=== PATIENT | female | born 1980 | race Hispanic/Latino ===

== ENCOUNTER 2020-04-13 14:48 | Observation (INO) | payer BC ==
[~2020-04-13] VITALS: Ht 162.6 cm; Wt 132.9 kg
--- OUTSIDE RECORDS SUMMARY | 2020-04-13 15:03 | XMS REPORT | Clinical Summary ---
Author Author [employer] [facility] Organization [employer] [facility] Address Unknown Phone Unavailable Care Team Providers Care Community Service Manager Name Role Phone Tre Viveros DO PCP Allergies Comments Active Allergy Reactions Severity Noted Date Meperidine Anaphylaxis High 05/22/2019 Medications End Date Status Medication Sig Dispensed Refills Start Date Active HUMIRA 40 mg/0.8 mL 0 injection 9 Active zolpidem CR (AMBIEN CR) TAKE 1 TABLET 4 12.5 MG CR tablet BY MOUTH 9 EVERY DAY AT BEDTIME NEEDED Active sulindac (CLINORIL) 200 Take 200 mg 3 MG tablet by mouth 2 9 (two) times a day. Active sulfaSALAzine sulfasalazine 0 (AZULFIDINE) 500 mg 500 mg tablet tablet TAKE 1 TABLET EVERY DAY Active metoprolol succinate XL Take 50 mg by 2 (TOPROL-XL) 50 mg 24 hr mouth daily. 9 tablet Active phenazopyridine phenazopyridi 0 (PYRIDIUM) 100 MG tablet ne 100 mg tablet TAKE 1 TABLET BY MOUTH THREE TIMES A DAY FOR 2 DAYS Active phentermine (ADIPEX-P) Take 37.5 mg 2 03/28/ 01 37.5 mg tablet by mouth 9 daily. 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 Active ibuprofen-famotidine Take 800 mg 90 tablet 12 09/04 (DUEXIS) 800-26.6 mg by mouth 3 9 tabletIndications: (three) times Contusion of lesser toe a day. of right foot without damage to nail, initial encounter, Right foot pain 09/04/2019 Discontinued (Reorder) ibuprofen-famotidine Take 800 mg 90 tablet 3 05/22 (DUEXIS) 800-26.6 mg by mouth 3 9 tabletIndications: (three) times Contusion of lesser toe a day. 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 Status Hospital, Clinic, or Ordered Dose Route Frequency Start End Date Other Facility Date Administered Medication Ended keTOROlac (TORadol) 60 mg IM once 07/08/20 injection 60 19 9 mgIndications: Acute bilateral low back pain without sciatica Active Problems No known active problems Encounters Care Team Description Date Type Specialty Pepe Martin MD 04/05/2020 Orders Only Sports Medicine Pepe Martin MD Acute shoulder bursitis, left (Primary D x) 04/01/2020 Office Visit Sports Medicine 04/01/2020 Travel 03/08/2020 Travel Pepe Martin MD Retroperitoneal lymphadenopathy 09/28/2019 Hospital Radiology Encounter Michelle Murry MA Retroperitoneal lymphadenopathy (Primary Dx) 09/24/2019 Orders Only Sports Medicine Michelle Murry MA 09/22/2019 Orders Only Sports Medicine Michelle Murry MA Retroperitoneal lymphadenopathy (Primary Dx) 09/22/2019 Orders Only Sports Medicine Pepe Martin MD Retroperitoneal lymphadenopathy (Primary Dx) 09/14/2019 Orders Only Sports Medicine Pepe Martin MD Solitary pulmonary nodule 09/12/2019 Hospital Radiology Encounter Michelle Murry MA Contusion of lesser toe of right foot wi thout damage to nail, initial encounter; Right foot pain 09/04/2019 Refill Sports Medicine Michelle Murry MA Solitary pulmonary nodule (Primary Dx) 07/21/2019 Orders Only Sports Medicine Michelle Murry MA Solitary pulmonary nodule (Primary Dx) 07/20/2019 Orders Only Sports Medicine Pepe Martin MD Acute bilateral low back pain without sc iatica (Primary Dx); Solitary pulmonary nodule 07/08/2019 Office Visit Sports Medicine Pepe Martin MD Primary osteoarthritis of both knees (Pr imary Dx) 07/03/2019 Office Visit Sports Medicine Pepe Martin MD Primary osteoarthritis of both knees (Pr imary Dx) 06/26/2019 Office Visit Sports Medicine Pepe Martin MD Primary osteoarthritis of both knees (Pr imary Dx) 06/19/2019 Office Visit Sports Medicine Michelle Murry MA Rheumatoid arthritis involving both knee s with positive rheumatoid factor (HCC); Primary osteoarthritis of both knees; Positive Guilherme sign (meniscus tear) of left knee, initial encounter 06/15/2019 Refill Sports Medicine Michelle Murry MA Rheumatoid arthritis involving both knee s with positive rheumatoid factor (HCC) (Primary Dx); Primary osteoarthritis of both knees; Positive Guilherme sign (meniscus tear) of left knee, initial encounter 06/04/2019 Refill Sports Medicine Pepe Martin MD Rheumatoid arthritis involving both knee s with positive rheumatoid factor (HCC) (Primary Dx); Chronic pain of both knees; Positive Guilherme sign (meniscus tear) of left knee, initial encounter; Primary osteoarthritis of both knees 05/26/2019 Office Visit Sports Medicine Pepe Martin MD Contusion of lesser toe of right foot wi thout damage to nail, initial encounter (Primary Dx); Right foot pain 05/22/2019 Office Visit Sports Medicine after 04/13/2019 Family History Medical History Relation Name Comments No Known Problems Father No Known Problems Mother Relation Name Status Comments Father Mother Alive Social History Date Tobacco Use Types Packs/Day Years Used Quit: 04/30/2012 Former Smoker Cigarettes 1 10 Smokeless Tobacco: Never Used Drinks/Week oz/Week Comments Alcohol Use Not Currently Sex Assigned at Date Recorded Female 05/13/2019 2:47 PM CDT Industry Job Start Date Occupation Not on file Not on file Not on file Travel End Travel History Travel Start No recent travel history available. Date Recorded COVID-19 Exposure Response 04/01/2020 10:04 AM CDT In the last month, have you been in contact with No / Unsure someone who was confirmed or suspected to have Coronavirus / COVID-19? Last Filed Vital Signs Not on file Plan of Treatment Health Maintenance Due Date Last Done Comments DIABETIC RETINAL EYE EXAM 1978 DIABETIC FOOT EXAM 1988 URINE MICROALBUMIN 1988 CERVICAL CANCER SCREENING 1999 INFLUENZA VACCINE 06/11/2020 09/14/2019 Procedures Comments Procedure Name Priority Date/Time Associated Diag nosis XR SHOULDER 2+ VW LEFT Routine 04/01/2020 Shoulde r injury, left, 10:29 AM CDT initial encounter CT ABDOMEN PELVIS W Routine 09/28/2019 Retroperit gaytan CONTRAST 7:09 PM [employer] lymphadenopathy ESTIMATED GFR Routine 09/28/2019 6:10 PM [employer] CREATININE LEVEL Routine 09/28/2019 6:[address] CHEST WO CONTRAST Routine 09/12/2019 Solitary pulmonary nodule 8:16 AM CDT XR LUMBAR SPINE COMPLETE Routine 07/08/2019 Acute bilateral low back 4+ VW 10:39 AM CDT pain without sciati ca MRI KNEE WO CONTRAST LEFT Routine 06/04/2019 [employer] fortino pain of both 2:57 PM CDT knees Positive Guilherme sign (meniscus tear) of left knee, initial encounter XR KNEE 3 VW BILATERAL Routine 05/26/2019 Chronic pain of both 1:56 PM CDT knees XR FOOT 3+ VW RIGHT Routine 05/22/2019 Right foot pain 1:33 PM CDT after 04/13/2019 Results * XR Shoulder 2+ Vw Left (04/01/2020 10:29 AM CDT) Specimen Narrative Performed At [facility] 3 views of the left shoulder were obtai tr. No overt evidence of acute osseous abnormality is identified at th is time. Minimal glenohumeral joint space narrowing is identified. Performing Organization Address City/State/Zipcode Ph one Number [facility] [address] [place] [address] * CT Abdomen Pelvis W Contrast (09/28/2019 7:09 PM [employer]) Specimen Narrative Performed At EXAMINATION: CT ABDOMEN PELVIS W CONTRAST [facility] CLINICAL HISTORY: R59.0 Localized enl arged lymph nodes, retroperitoneal lymph nodes COMPARISON: 09/12/2019 TECHNIQUE: CT of the abdomen and pelv is with intravenous contrast. CT imaging was performed with iterative reconstruction techniques and/or automated exposure control to reduce ra diation dose. FINDINGS: LOWER THORAX: Normal. HEPATOBILIARY: Cholecystectomy. No fo marisabel hepatic lesion. No biliary dilation. SPLEEN: No splenomegaly. PANCREAS: No focal masses or ductal d ilation. ADRENALS: No adrenal nodules. KIDNEYS: No hydronephrosis, stones or solid masses. GI TRACT: Visualized portions of the bowel demonstrate no distention or wall thickening. PERITONEUM/RETROPERITONEUM: There is an enlarged 3.0 x 4.1 x 2.0 cm gastrohepatic lymph node, stable. It is heterogeneous suggesting some areas of necrosis. There is a second 9 mm node j ust inferior to the large node. There is an upper limits of normal port a hepatic/peripancreatic node measuring 1 cm. No additional abdominal adenopathy. No ascites. No free air. VASCULATURE: Abdominal aorta is nonaneu rysmal. PELVIC ORGANS/BLADDER: Bilateral tuba l ligation clips. 2.5 cm dominant follicle left ovary. There is no pelvic fluid or adenopathy. BONES AND SOFT TISSUES: No suspicious osseous lesions. IMPRESSION: 1.4.1 cm gastrohepatic lymph node with an immediately adjacent 9 mm lymph node. While nonspecific, they are most concer kay for malignancy such as lymphoma or metastatic disease. Consider endoscopic ultrasound with tissue sampling. PET CT could also be performed. 2.Additional findings as above. [facility]-[id number] Procedure Note Hm Interface, Radiology Results Incoming - 09/28/2019 7:32 PM [employer] EXAMINATION: CT ABDOMEN PELVIS W CONTRAST CLINICAL HISTORY: R59.0 Localized enlarged lymph nodes, retroperitoneal lymph nodes COMPARISON: 09/12/2019 TECHNIQUE: CT of the abdomen and pelvis with intravenous contrast. CT imaging was performed with iterative reconstruction techniques and/or automated exposure control to reduce radiation dose. FINDINGS: LOWER THORAX: Normal. HEPATOBILIARY: Cholecystectomy. No focal hepatic lesion. No biliary dilation. SPLEEN: No splenomegaly. PANCREAS: No focal masses or ductal dilation. ADRENALS: No adrenal nodules. KIDNEYS: No hydronephrosis, stones or solid masses. GI TRACT: Visualized portions of the bowel demonstrate no distention or wall thickening. PERITONEUM/RETROPERITONEUM: There is an enlarged 3.0 x 4.1 x 2.0 cm gastrohepatic lymph node, stable. It is heterogeneous suggesting some areas of necrosis. There is a second 9 mm node just inferior to the large node. There is an upper limits of normal [place] hepatic/peripancreatic node measuring 1 cm. No additional abdominal adenopathy. No ascites. No free air. VASCULATURE: Abdominal aorta is nonaneurysmal. PELVIC ORGANS/BLADDER: Bilateral tubal ligation clips. 2.5 cm dominant follicle left ovary. There is no pelvic fluid or adenopathy. BONES AND SOFT TISSUES: No suspicious osseous lesions. IMPRESSION: 1.4.1 cm gastrohepatic lymph node with a n immediately adjacent 9 mm lymph node. While nonspecific, they are most concerning for malignancy such as lymphoma or metastatic disease. Consider endoscopic ultrasound with tissue sampling. PET CT could also be performed. 2.Additional findings as above. [facility]-[id number] Performing Organization Address City/[facility] Ph one Number [facility] [address] [place] [address] * Estimated GFR (09/28/2019 6:10 PM [employer]) Estimated GFR >=90 mL/min/1.73 m2 TATUMS Comment: MANDAEISM SUGAR [facility] Interpretation G1 >=90 Normal or high G2 60-89 Mildly decreased G3a 45-59 Mildly to moderately decreased G3b 30-44 Moderately to severely decreased G4 15-29 Severely decreased G5 <15 Kidney failure The eGFR was calculated using the Chronic Kidney Disease Epidemiology Collaboration (CKD-EPI) equation. Interpretation is based on recommendations of the National Kidney Foundation-Kidney Disease Outcomes Quality Initiative (NKF-KDOQI) published in 2014. Specimen Plasma specimen Performing Organization Address City/[facility]/Zipcode Ph one Number [facility] [place] [address] [place], [place] [address] [facility] [address] * Creatinine level (09/28/2019 6:10 PM [employer]) Creatinine 0.50 0.50 - 0.90 mg/dL [facility] Specimen Plasma specimen Performing Organization Address [facility] Ph one Number [facility] [place] [address] [place], [place] [address] [facility]Y [facility]OM[facility] [address] * CT Chest Wo Contrast (09/12/2019 8:16 AM CDT) Specimen Narrative Performed At EXAMINATION: [facility] CT CHEST WO CONTRAST CLINICAL HISTORY: R91.1 Solitary pulmonary nodule, Pulmon abbie nodule along the right lower lobe concern for malignancy versus calcified lymph node TECHNIQUE: Multiple axial images of the chest were obtained without intravenous contrast. The lack of intravenous contrast reduce s the sensitivity of detecting solid organ disease and evaluating vasculatur e. Sagittal and coronal computerized reformatted images were also obtained. CT imaging was performed with iterative reconstruction techniques and/or automated exposure control to reduce ra diation dose. COMPARISON: None. FINDINGS: 1.No pulmonary infiltrates or nodules a re seen. 2.Interstitial markings are not increas ed. There are no areas of groundglass opacification. 3.No pleural or pericardial effusions. 4.Thoracic aorta is of normal caliber. No enlarged hilar or mediastinal lymph nodes. 5.Limited scans through the upper abdom en demonstrate enlarged lymph nodes around the celiac axis. Complete evalua tion with CT scan of the abdomen would be suggested if this has not been previous ly performed. IMPRESSION: No pulmonary abnormality. Enlarged uppe r retroperitoneal lymph nodes; further evaluation with CT scan of the abdomen suggested if this has not been previously performed. [facility]-[id number] Procedure Note Interface, Radiology Results Incoming - 09/12/2019 8:27 AM CDT EXAMINATION: CT CHEST WO CONTRAST CLINICAL HISTORY: R91.1 Solitary pulmonary nodule, Pulmonary nodule along the right lower lobe concern for malignancy versus calcified lymph node TECHNIQUE: Multiple axial images of the chest were obtained without intravenous contrast. The lack of intravenous contrast reduces the sensitivity of detecting solid organ disease and evaluating vasculature. Sagittal and coronal computerized reformatted images were also obtained. CT imaging was performed with iterative reconstruction techniques and/or automated exposure control to reduce radiation dose. COMPARISON: None. FINDINGS: 1.No pulmonary infiltrates or nodules ar e seen. 2.Interstitial markings are not increase d. There are no areas of groundglass opacification. 3.No pleural or pericardial effusions. 4.Thoracic aorta is of normal caliber. N o enlarged hilar or mediastinal lymph nodes. 5.Limited scans through the upper abdome n demonstrate enlarged lymph nodes around the celiac axis. Complete evaluation with CT scan of the abdomen would be suggested if this has not been previously performed. IMPRESSION: No pulmonary abnormality. Enlarged upper retroperitoneal lymph nodes; further evaluation with CT scan of the abdomen suggested if this has not been previously performed. [facility]-[id number] Performing Organization Address [facility] Ph one Number [facility] [address] [place] [address] * XR Lumbar Spine Complete 4+ Vw (07/08/2019 10:39 AM CDT) Specimen Narrative Performed At [facility] 5 views of the lumbar spine were obtain ed. No evidence of lumbar levoscoliosis is identified. Mild deg enerative changes of the L5-S1 disc space is identified with no evidence of spondylolysis and/or spondylolisthesis. Incidentally, conc valentin for solitary pulmonary nodule versus calcified lymph node along the r ight lower lobe is visualized requiring further diagnostic imaging. Performing Organization Address [facility] Ph one Number [facility] [address] [place] [address] * MRI Knee Left Wo Contrast (06/04/2019 2:57 PM CDT) Specimen [facility]ative [facility]: MRI KNEE WO CONTRAST LEF T CLINICAL HISTORY: M25.561 Pain in rig ht knee, M25.562 Pain in left knee, knee pain TECHNIQUE: Multiplanar multisequence MR imaging of the knee was performed without contrast. COMPARISON: 05/26/2019 FINDINGS: 1. Cruciate ligaments: There is no evid ence of a tear of the anterior or the posterior cruciate ligaments. 2. Collateral ligaments: Medial collate ral ligament is intact. Fibular collateral ligament and biceps femoris tendon are intact. 3. Medial Meniscus: Grade 2 signal in t he body and posterior horn of the medial meniscus does not meet strict criteria for tear and likely represents intrasubstance degeneration. 4. Medical Compartment Cartilage: There is no evidence of a focal chondral defect of the cartilage of the medial f emoral condyle where the medial tibial plateau. 5. Lateral Meniscus: Mild intrasubstanc e degeneration of the lateral meniscal body. No evidence of a lateral meniscal tear. 6. Lateral Compartment Cartilage: No ev idence of a chondral defect of the lateral femoral tibial compartment. Low -grade chondral loss of the posterior cartilage of the lateral femoral condyl e. 7. Patellofemoral Compartment:Low-grade chondromalacia along the medial patellar facet without evidence of a discrete ch ondral defect. There is a small focal high-grade chondral fissure of the medi al trochlear cartilage as seen on series 5, image 17 with minimal cystic change of the subchondra l bone plate. 8. Extensor mechanism: The quadriceps t endon is intact. The patellar tendon is intact. Mild extensor tendinosis. Focal subcutaneous edema involving the prepatellar and superficial infrapatell ar soft tissues with stripping of the prepatellar extensor mechanism aponeurosis fibers as seen on series 6, image 15. 9. Effusion: A small amount of fluid is present in the knee joint. Moderate edema of the superolateral aspect of Ho ffa's fat pad. There is no evidence of lateralization of the tibial tubercle. 10. Bone marrow: Red marrow is present in the bones of the knee probably secondary to underlying gender and body habitus. 11. Soft tissues: Small Thornton's cyst. P repatellar and superficial infrapatellar subcutaneous edema. Neurovascular bundl e is grossly unremarkable. IMPRESSION: 1. Grade 2 signal of the posterior ho rn and body of the medial meniscus does not meet strict criteria for tear. 2. Edema of the superolateral aspect of Hoffa's fat pad consistent with fat pad impingement. 3. Stripping of the prepatellar exten sor mechanism aponeurosis with prepatellar and superficial infrapatell ar subcutaneous edema. 4. Additional findings and details as above. [facility]-[id number] Procedure Note Hm Interface, Radiology Results 06/04/2019 3:09 PM CDT EXAMINATION: MRI KNEE WO CONTRAST LEFT CLINICAL HISTORY: M25.561 Pain in right knee, M25.562 Pain in left knee, knee pain TECHNIQUE: Multiplanar multisequence MR imaging of the knee was performed without contrast. COMPARISON: 05/26/2019 FINDINGS: 1. Cruciate ligaments: There is no evide nce of a tear of the anterior or the posterior cruciate ligaments. 2. Collateral ligaments: Medial collater al ligament is intact. Fibular collateral ligament and biceps femoris tendon are intact. 3. Medial Meniscus: Grade 2 signal in th e body and posterior horn of the medial meniscus does not meet strict criteria for tear and likely represents intrasubstance degeneration. 4. Medical Compartment Cartilage: There is no evidence of a focal chondral defect of the cartilage of the medial femoral condyle where the medial tibial plateau. 5. Lateral Meniscus: Mild intrasubstance degeneration of the lateral meniscal body. No evidence of a lateral meniscal tear. 6. Lateral Compartment Cartilage: No oli dence of a chondral defect of the lateral femoral tibial compartment. Low-grade chondral loss of the posterior cartilage of the lateral femoral condyle. 7. Patellofemoral Compartment:Low-grade chondromalacia along the medial patellar facet without evidence of a discrete chondral defect. There is a small focal high-grade chondral fissure of the medial trochlear cartilage as seen on series 5, image 17 with minimal cystic change of the subchondral bone plate. 8. Extensor mechanism: The quadriceps te ndon is intact. The patellar tendon is intact. Mild extensor tendinosis. Focal subcutaneous edema involving the prepatellar and superficial infrapatellar soft tissues with stripping of the prepatellar extensor mechanism aponeurosis fibers as seen on series 6, image 15. 9. Effusion: A small amount of fluid is present in the knee joint. Moderate edema of the superolateral aspect of Hoffa's fat pad. There is no evidence of lateralization of the tibial tubercle. 10. Bone marrow: Red marrow is present i n the bones of the knee probably secondary to underlying gender and body habitus. 11. Soft tissues: Small Thornton's cyst. Pr epatellar and superficial infrapatellar subcutaneous edema. Neurovascular bundle is grossly unremarkable. IMPRESSION: 1. Grade 2 signal of the posterior horn and body of the medial meniscus does not meet strict criteria for tear. 2. Edema of the superolateral aspect of Hoffa's fat pad consistent with fat pad impingement. 3. Stripping of the prepatellar extenso r mechanism aponeurosis with prepatellar and superficial infrapatellar subcutaneous edema. 4. Additional findings and details as a jacqueline. [facility]-[id number] Performing Organization Address [facility] one Number [facility] [address] [place] [address] * XR Knee 3 Vw Bilateral (05/26/2019 1:56 PM CDT) Specimen Narrative Performed At [facility] 3 view of the bilateral knees were obta ined. Mild medial compartment joint space narrowing is visualized wit h mild patellofemoral degenerative joint disease on the right with small m arginal osteophyte of the left patella. No other osseous abnormality including fracture or dislocation is identified at this time. Performing Organization Address [facility] one Number [facility] [address] [place] [address] * XR Foot 3+ Vw Right (05/22/2019 1:33 PM CDT) Specimen Narrative Performed At [facility] 3 view of the right foot was obtained. No overt evidence of fracture is identified at this time. Cortical april ency seen along the distal fourth proximal phalanx concerning for a nondi splaced spiral fracture is visualized, but likely nutrient vessel/ shadow from skinfold rather than true osseous abnormality. Performing Organization Address [facility] one Number [facility] [address] [place] [address] after 04/13/2019 Insurance Type Payer Benefit Subscriber ID Effective Phone Address Plan / Dates Group PPO BCBS BCBS xxxxxxxxxxxx [id number] CHOICE resent PPO/BERTIN LAL PPO Advance Directives For more information, please contact: [phone] Patient Parking Manager Explanation Type Date Recorded Advance Directives, Living Will and Medical Power of Metal Trimmer
--- OUTSIDE RECORDS SUMMARY | 2020-04-13 15:03 | XMS REPORT | Continuity of Care Document ---
Author Author [facility] t Organization [facility] Address [address] [place] [address] Phone Unavailable Care Team Providers Care Senior Packaging Engineer Name Role Phone Tre Viveros DO PCP Cassie CONNELL, Steve Cantu Attphys Jeanmarie NICOLE, Michelle Attphys Unavailable Payers Payer Name Policy Type Policy Number Effective Date Expiration Date S alpesh BCBSBCBS CHOICE PPO/FEDERAL EMPL PPOxxxxxxxxxxxx1-Pre sentPPO xxxxxxxxxxxx 2019 00:00:00 Nemesio Saini Problems This patient has no known problems. Allergies, Adverse Reactions, Alerts Allergy Name Allergy Type Status Severity Reaction(s) Onset Date Inacti ve Date Treating Clinician Comments Source Meperidine Propensity to adverse reactions to drug Active Anaphylaxis 2019-05-22 00:00:00 Nmeesio Meth odist meperidine HCl DA Active SV 2018-02-13 00:00:00 [facility] Family History Family Member Diagnosis Comments Start Date Stop Date Source Natural father No Known Problems Davide Saini Natural mother No Known Problems Davide Saini Social History Social Habit Start Date Stop Date Quantity Comments Source Sex Assigned At F Davide Saini Exposure to SARS-CoV-2 (event) Not sure Nemesio Saini Cigarettes smoked current (pack per day) - Reported 00:00:00 2020-04-01 00:00:00 Nemesio Saini Cigarette pack-years 2020-04-01 00:00:00 2020-04-01 00:00:00 Nemesio Saini Alcohol intake 2020-04-01 00:00:00 2020-04-01 00:00:00 Ex-drinker (fi nding) Nemesio Saini History of tobacco use 2012-04-30 00:00:00 Current smoker Nemesio Saini Smoking Status Start Date Stop Date Source Former smoker 2020-04-01 00:00:00 2020-04-01 00:00:00 Nemesio Saini Medications Ordered Medication Name Filled Medication Name Start Date Stop Da te Current Medication? Ordering Clinician Indication Dosage Frequency Signature (SIG) Comments Components Source ibuprofen-famotidine (DUEXIS) 800-26.6 mg tablet 2019-09-04 00:00:00 Yes Right foot pain 800mg Q.[id number] Take 800 mg by mo ut 3 (three) times a day. Nemesio Saini keTOROlac (TORadol) injection 60 mg 2019-07-08 11:00:0 0 2019-07-08 11:00:00 No Acute bilateral low back pain without sciatica 60mg Nemesio Saini cyclobenzaprine (FLEXERIL) 10 mg tablet 2019-07-08 00:00:00 Yes 10mg Q.[id number] Take 1 tablet (10 mg total) by mouth 3 ( three) times a day as needed for muscle spasms. Nemesio Saini predniSONE (DELTASONE) 20 mg tablet 2019-07-08 00:00:0 0 2019-07-22 23:59:00 No Take 2 tablets (40 mg total) by mouth daily for 7 days, THEN 1 tablet (20 mg total) daily for 7 days. Nemesio Saini PENNSAID 20 mg/gram /actuation(2 %) solution in metered-dose pump 2019-06-15 00:00:00 Yes Positive McMurra y sign (meniscus tear) of left knee, initial encounter Apply two pumps to LT Knee BID Nemesio Saini PENNSAID 20 mg/gram /actuation(2 %) solution in metered-dose pump 2019-06-04 00:00:00 2019-06-15 00:00:00 No Positive McM urray sign (meniscus tear) of left knee, initial encounter Apply two pumps to LT Knee BID Nemesio Saini sulfaSALAzine (AZULFIDINE) 500 mg tablet 2019-05-26 14:37:19 Yes sulfasalazine 500 mg tablet TAKE 1 TABLET EVERY DAY Nemesio Saini phenazopyridine (PYRIDIUM) 100 MG tablet 2019-05-26 14:37:19 Yes phenazopyridine 100 mg tablet TAKE 1 TABLET BY MOUTH THREE TIMES A DAY FOR 2 DAYS Nemesio Saini pregabalin (LYRICA) 150 MG capsule 2019-05-26 14:37:19 Yes Lyrica 150 mg capsule TAKE 1 CAPSULE BY MOUTH TWICE A DAY Nemesio Saini ibuprofen-famotidine (DUEXIS) 800-26.6 mg tablet 2019-05-22 00:00:00 2019-09-04 00:00:00 No Right foot pain 800mg Q.[id number] Take 800 mg by mouth 3 (three) times a day. Pramod Saini HUMIRA 40 mg/0.8 mL injection 2019-05-12 00:00:00 Yes Nemesio Saini metoprolol succinate XL (TOPROL-XL) 50 mg 24 hr tablet 2019-05-05 00:00:00 Yes 50mg QD Take 50 mg by mouth daily. Nemesio Saini zolpidem CR (AMBIEN CR) 12.5 MG CR tablet 2019-05-01 00:00:00 Yes TAKE 1 TABLET BY MOUTH EVERY DAY AT BEDTIME NEEDED Nemesio Saini sulindac (CLINORIL) 200 MG tablet 2019-04-24 00:00:00 Yes 200mg Q.5D Take 200 mg by mouth 2 (two) times a day. Nemeiso Saini phentermine (ADIPEX-P) 37.5 mg tablet 2019-03-28 00:00:00 Y es 37.5mg QD Take 37.5 mg by mouth daily. Nemesio alvarez Procedures Procedure Date / Time Performed Performing Clinician Sourc e XR SHOULDER 2+ VW LEFT 2020-04-01 10:29:[address] ABDOMEN PELVIS W CONTRAST 2019-09-28 19:09:16 Rupesh Matthews CREATININE LEVEL 2019-09-28 18:10:00 [facility] 2019-09-28 18:10:[address] CHEST WO CONTRAST 2019-09-12 08:16:18 Rupesh Matthews [facility] XR LUMBAR SPINE COMPLETE 4+ VW 2019-07-08 10:39:35 Rupesh Matthews MRI KNEE WO CONTRAST LEFT 2019-06-04 14:57:14 Rupesh Matthews [facility] X[facility] KNEE 3 VW BILATERAL 2019-05-26 13:56:03 Rupesh Matthews [facility] X[facility] FOOT 3+ VW RIGHT 2019-05-22 13:33:41 Rupesh Matthews Plan of Care Planned Activity Planned Date Details Comments Source Future Scheduled Test 2020-06-11 00:00:00 INFLUENZA VACCINE [code = INFLUENZA VACCINE] Nemesio Saini Future Scheduled Test 1999 00:00:00 Screening for isidro gnant neoplasm of cervix (procedure) [code = 659008938] Nemesio Campoverde Future Scheduled Test 1988 00:00:00 DIABETIC FOOT EXAM [code = DIABETIC FOOT EXAM] Nemesio Saini Future Scheduled Test 1988 00:00:00 URINE MICROALBUMIN [code = URINE MICROALBUMIN] Nemesio Saini Future Scheduled Test 1978 00:00:00 DIABETIC RETINAL E YE EXAM [code = DIABETIC RETINAL EYE EXAM] Nemesio Saini Encounters Start Date/Time End Date/Time Encounter Type Admission Type [facility] Care Department Encounter ID Source 2020-04-01 00:00:00 2020-04-01 00:00:00 Outpatient RUPESH [facility]WS [facility] [id number] Nemesio Saini 2020-04-01 00:00:00 2020-04-01 00:00:00 Outpatient RUPESH [facility]WS [facility] [id number] Nemesio Saini 2019-09-28 00:00:00 2019-09-28 00:00:00 Outpatient CASSIE RUPESH [facility] [id number] Nemesio Saini 2019-09-12 00:00:00 2019-09-12 00:00:00 Outpatient MATTHEWS RUPESH [facility] [id number] Nemesio Saini 2019-07-24 10:08:00 2019-07-24 10:08:00 Outpatient [facility] [address] [facility] Results Test Description Test Time Test Comments Results Result Comments [facility] 14:03:00 Name: JANE ATKINS [facility] : 1980 Age/S: 39 / F Jose Roberto Cárdenas Unit #: [id number] Loc: [place] [address] Phys: Andre Chilel MD Acct: [id number] Dis Date: Status: [facility] PHONE #: [phone] Exam Date: 10/16/2019 1240 FAX #: [phone] Reason: BIOPSY EXAMS: CPT CODE: [id number] CT GUID [facility] [address] EXAM: CT-guided biopsy of a retroperitoneal lymph node; INFORMATION: Patient with mild abdominal pain. An outside CT scan from September 28, 2019 as demonstrated enlarged celiac lymph nodes. TECHNIQUE AND FINDINGS: CT dose reduction protocol; 2.5 mm axial scans. After obtaining informed consent, the patient was placed supine on the CT table. Localization scans were obtained. The demonstrated again to enlarged lymph nodes adjacent to each other. They're located slightly cranially into the left of the celiac axis, cranial to the body of the pancreas and medial and inferior to the lesser curvature of the stomach. This is consistent with adenopathy. General anesthesia was initiated. The patient's skin in the epigastric region was prepped and draped in the usual sterile fashion. Marcaine was administered and this 17-gauge guiding cannula was then inserted through the left lobe of the liver and positioned within the anterior aspect of an enlarged lymph node. Correct needle position was confirmed with additional scans. 2 passes were then made with an 18-gauge core biopsy needle. In addition fine- needle aspiration biopsy was performed with a 20-gauge Chiba needle. Tissue material was sent to the pathology lab. The guiding cannula was then removed. Post biopsy scans showed no evidence of hemorrhage. No apparent complications. IMPRESSION: Successful CT-guided transhepatic biopsy of enlarged celiac lymph nodes. Location code: [facility] at 1403 Reported and signed by: Andre Chilel M.D. CC: Tre Viveros DO; Andre Chilel MD Technologist:Jose Armando Diehl RT(R),(MR),(CT) CTDI: DLP: Trnscb Date/Time: 10/21/2019 (1271) Rj Orig Print D/T: S: 10/21/2019 (6495) PAGE 1 Signed Report LYMPH NODE,BIOPSY 2019-10-20 15:39:00 RUN DATE: 10/20/19 [facility] PAGE 1 RUN TIME: 1540 Specimen Inquiry RUN USER: INTERFACE PATIENT: JANE ATKINS LOC: GladisNEHEMIAS U #: [id number] AGE/SX: 39/F ROOM: RE10/16/19[facility]: Andre Chilel MD : [birth year] BED: DIS: STATUS: VIGNESH LARSEN TLOC: SPEC #: [id number] RECD: 10/16/19 STATUS: OMER ARNOLD #: [id number] ROLANDO: 10/16/19- SUBM DR: Andre Chilel MD ENTERED: 10/16/19 SP TYPE: BX LYMPH OTHR DR: Tre Viveros DO TUMOR REGISTRYORDERED: GROSS COPIES TO: Tre Viveros DO [address] [facility] [place] [address] TUMOR REGISTRY Andre Chilel MD [address] [place] [address] MARKERS: MALIGNANCY PROCEDURES: GROSS (10/19/19-105) TISSUES: 1. LYMPH NODE, NOS - RINSE, 5 SLIDES, FLOW 2. LYMPH NODE, NOS - BX CLINICAL HISTORY COLLECTION DATE: 10/16/19 ENLARGED CELIAC LYMPH NODES COMMENT The core biopsy was sent to [facility] for immunostains. T he immunostains were interpreted at [facility]. The controls stain appropriately. The tumor is positive for CK-7 and focally positive for CK-20. It is negative for CA-19-9. Consider GI (not typical staining pattern for colonic primary) or Fine Sander primary. Clinical correlation recommended. Intradepartmental consultation: RRB. CONTINUED ON NEXT PAGE RUN DATE: 10/20/19 [facility] PAGE 2 RUN TIME: 1540 Specimen Inquiry RUN USER: INTERFACE SPEC #: [id number] PATIENT: JANE ATKINS #[id number] (Continued) FINAL DIAGNOSIS Celiac lymph node, fine needle aspirate biopsy: FRAGMENTS OF FIBROUS TISSUE AND PERIPHERAL BLOOD ELEMENTS NEGATIVE FOR MALIGNANCY Celiac lymph node, core biopsy and touch preps: ADENOCARCINOMA WITH ASSOCIATED FIBROTIC TISSUE (SEE COMMENT) DMW/amena D 137162, 52903, 31086, 27818, 061030 MACROSCOPIC Specimen (1) is designated "celiac lymph node". It consists of two aspirate smear slides to be stained for cytologic evaluation and aspirate rinse fluid to concentrated and processed for cytologic evaluation, submitted as (1). A cell block is prepared from the aspirate rinse fluid. Specimen (2) is received in formalin, labeled with the patient's name, and identified as "celiac lymph node bx". It consists of thin needle biopsies of light ward tissue measuring 1.2 cm in aggregate length with diameters of less than 0.1 cm. The tissue is submitted as (2). Three touch prep slides are received and will be stained for cytologic evaluation. GROSS PERFORMED AT [facility] [address] [place] [address] (P)[phone] MICROSCOPIC The sections of the core biopsy material demonstrate fibrotic tissue containing an adenocarcinoma with focally prominent nuclear atypia and some scattered mark otic figures. There is some mild chronic inflammation also present, however, no residual lymph node tissue is identified. Similar tumor cells are seen on the touch prep slides. All of the stains, including any controls performed, stain appropriately. MICROSCOPIC PERFORMED AT [facility] [address] [place] [address] (P)[phone] CONTINUED ON NEXT PAGE RUN DATE: 10/20/19 [facility] PAGE 3 RUN TIME: 1540 Specimen Inquiry RUN USER: INTERFACE SPEC #: [id number] PATIENT: JANE ATKINS #[id number] (Continued) PERFORMING SITE Diagnosis performed at: [facility], N[place]ER [address] [facility] [place] [address] Signed SIGNATURE ON FILE Giselle Eagle MD 10/20/19 1539 END OF REPORT BASIC METABOLIC PANEL 2019-10-14 16:03:00 Test Item SODIUM (test code = NA) 139 mmol/L 136-145 N POTASSIUM (test code = K) 3.8 mmol/L 3.5-5.1 N CHLORIDE (test code = CL) 107.0 mmol/L 98-107 N CARBON DIOXIDE (test code = CO2) 24.0 mmol/L 21-32 N ANION GAP (test code = GAP) 11.8 10-20 N GLUCOSE (test code = GLU) 128 mg/dL 74-106 H BLOOD UREA NITROGEN (test code = BUN) 19 mg/dL 7-18 H GLOMERULAR FILTRATION RATE (test code = GFR) > 60 mL/min >=60 Estimated GFR by using Modified MDRD formula.Chronic kidney disease is defined as either kidney damageor GFR <60 mL/min/1.73 m2 for >3 months. CREATININE (test code = CREAT) 0.70 mg/dL 0.55-1.02 N Note change in reference range due to change in reagent. BUN/CREATININE RATIO (test code = BUN/CREA) 26.1 10-20 H CALCIUM (test code = CA) 8.6 mg/dL 8.5-10.1 N BASIC METABOLIC [id number] 15:56:00* Test Item Value Reference Range Interpretation Comments SODIUM (test code = NA) 139 mmol/L 136-145 N POTASSIUM (test code = K) 3.8 mmol/L 3.5-5.1 N CHLORIDE (test code = CL) 107.0 mmol/L 98-107 N CARBON DIOXIDE (test code = CO2) mmol/L 21-32 ANION GAP (test code = GAP) 10-20 GLUCOSE (test code = GLU) mg/dL 74-106 BLOOD UREA NITROGEN (test code = BUN) mg/dL 7-18 GLOMERULAR FILTRATION RATE (test code = GFR) mL/min >=60 CREATININE (test code = CREAT) mg/dL 0.55-1.02 BUN/CREATININE RATIO (test code = BUN/CREA) 10-20 CALCIUM (test code = CA) mg/dL 8.5-10.1 CBC W/AUTO [id number] 15:46:00* Test Item Value Reference Range Interpretation Comments WHITE BLOOD CELL (test code = WBC) K/mm3 4.5-12.5 RED BLOOD CELL (test code = RBC) mill/mm3 3.7-5.2 HEMOGLOBIN (test code = HGB) 12.6 gram/dL 11.5-15.5 N HEMATOCRIT (test code = HCT) 38.5 % 36.0-46.0 N MEAN CELL VOLUME (test code = MCV) fL 80-98 MEAN CELL HGB (test code = MCH) picogram 27.0-33.0 MEAN CELL HGB CONCETRATION (test code = MCHC) gram/dL 33.0-36. 0 RED CELL DISTRIBUTION WIDTH (test code = RDW) % 11.6-16. 2 RED CELL DISTRIBUTION WIDTH SD (test code = RDW-SD) fL 37 .0-51.0 PLATELET COUNT (test code = PLT) K/mm3 150-450 MEAN PLATELET VOLUME (test code = MPV) fL 6.7-11.0 NEUTROPHIL % (test code = NT%) % 39.0-69.0 IMMATURE GRANULOCYTE % (test code = IG%) % 0.0-5.0 LYMPHOCYTE % (test code = LY%) % 25.0-55.0 MONOCYTE % (test code = MO%) % 0.0-10.0 EOSINOPHIL % (test code = EO%) % 0.0-5.0 BASOPHIL % (test code = BA%) % 0.0-1.0 NEUTROPHIL # (test code = NT#) K/mm3 1.8-7.7 LYMPHOCYTE # (test code = LY#) K/mm3 1.0-5.0 MONOCYTE # (test code = MO#) K/mm3 0-0.8 EOSINOPHIL # (test code = EO#) K/mm3 0.0-0.5 BASOPHIL # (test code = BA#) K/mm3 0.0-0.2 CBC W/AUTO [id number] 15:46:00* Test Item Value Reference Range Interpretation Comments WHITE BLOOD CELL (test code = WBC) 7.9 K/mm3 4.5-12.5 N RED BLOOD CELL (test code = RBC) 4.31 mill/mm3 3.7-5.2 N HEMOGLOBIN (test code = HGB) 12.6 gram/dL 11.5-15.5 N HEMATOCRIT (test code = HCT) 38.5 % 36.0-46.0 N MEAN CELL VOLUME (test code = MCV) 89.3 fL 80-98 N MEAN CELL HGB (test code = MCH) 29.2 picogram 27.0-33.0 N MEAN CELL HGB CONCETRATION (test code = MCHC) 32.7 gram/dL 33.0-36. 0 L RED CELL DISTRIBUTION WIDTH (test code = RDW) 13.3 % 11.6-16. 2 N RED CELL DISTRIBUTION WIDTH SD (test code = RDW-SD) 43.4 fL 37 .0-51.0 N PLATELET COUNT (test code = PLT) 322 K/mm3 150-450 N MEAN PLATELET VOLUME (test code = MPV) 11.4 fL 6.7-11.0 H NEUTROPHIL % (test code = NT%) 59.0 % 39.0-69.0 N IMMATURE GRANULOCYTE % (test code = IG%) 0.6 % 0.0-5.0 N LYMPHOCYTE % (test code = LY%) 31.7 % 25.0-55.0 N MONOCYTE % (test code = MO%) 6.3 % 0.0-10.0 N EOSINOPHIL % (test code = EO%) 1.8 % 0.0-5.0 N BASOPHIL % (test code = BA%) 0.6 % 0.0-1.0 N NUCLEATED RBC % (test code = NRBC%) 0.0 % 0-0 N NEUTROPHIL # (test code = NT#) 4.68 K/mm3 1.8-7.7 N IMMATURE GRANULOCYTE # (test code = IG#) 0.05 x10 3/uL 0-0.03 H LYMPHOCYTE # (test code = LY#) 2.51 K/mm3 1.0-5.0 N MONOCYTE # (test code = MO#) 0.50 K/mm3 0-0.8 N EOSINOPHIL # (test code = EO#) 0.14 K/mm3 0.0-0.5 N BASOPHIL # (test code = BA#) 0.05 K/mm3 0.0-0.2 N NUCLEATED RBC # (test code = NRBC#) 0.00 K/mm3 0.0-0.1 N MANUAL DIFF REQUIRED (test code = MDIFF) NO PROTHROMBIN [id number] 15:06:00* Test Item Value Reference Range Interpretation Comments PROTHROMBIN TIME PATIENT (test code = PTP) 11.9 seconds 9.0-14.0 N INTERNATIONAL NORMAL RATIO (test code = INR) 1.0 0.8-1.2 N The therapeutic range for oral anticoagulant therapy formost indications is an international normalized ratio (INR)of between 2.0 and 3.0. The recommended therapeutic INRrange for various clinical situations is listed below: Clinical Situation INR range Pulmonary e mbolism treatment (2.0-3.0)Venous thrombosis treatmentVenous thrombosis prophylaxis (high risk surgery)Prevention of systemic embolism from: Acute myocardial infarction Valvular heart disease Atrial fibrillation Mechanical prosthetic heart valves (2.5-3.5) THROMBOPLASTIN TIME [id number] 15:06:00* Test Item Value Reference Range Interpretation Comments THROMBOPLASTIN TIME PARTIAL (test code = PTT) 30.7 seconds 25.0-36. 5 N Creatinine [id number] 08:20:06* Test Item Value Reference Range Interpretation Comments Creatinine (test code = 2160-0) 0.50 mg/dL 0.5-0.9 Nemesio MethodistEstimated [id number] 08:20:06* Test Item Value Reference Range Interpretation Comments Estimated GFR (test code = 5488) >=90 mL/min/1.73 m2 Catergory Units InterpretationG1 >=90 Normal or highG2 60-89 Mildly fxcggztauX0l 45-59 Mildly to moderately tohdyfswxE9r 30-44 Moderately to severely decreasedG4 15-29 Severely decreasedG5 <15 Kidney failureThe eGFR was calculated using the Chronic Kidney Disease Epidemiology Collaboration (CKD-EPI) equation. Interpretation is based on recommendations of the National Kidney Foundation-Kidney Disease Outcomes Quality Initiative (NKF-KDOQI) published in 2014. [facility] Abdomen Pelvis W [id number] 19:28:59Hm Interface, Radiology Results - 09/28/2019 7:32 PM CSTEXAMINATION: CT ABDOMEN PELVIS W CONTRASTCLINICAL HISTORY: R59.0 Localized enlarged lymph nodes, retroperitoneal lymph nodesCOMPARISON: 09/12/2019TECHNIQUE: CT of the abdomen and pelvis with intravenous contrast. CT imaging was performed with iterative reconstruction techniques and/or automated exposure control to reduce radiation dose. FINDINGS:LOWER THORAX: Normal.HEPATOBILIARY: Cholecystectomy. No focal hepatic lesion. No biliary dilation.SPLEEN: No splenomegaly.PANCREAS: No focal masses or ductal dilation.ADRENALS: No adrenal nodules.KIDNEYS: No hydroneph rosis, stones or solid masses.GI TRACT: Visualized portions of the bowel demons trate no distention or wall thickening.PERITONEUM/RETROPERITONEUM: There is an enlarged 3.0 x 4.1 x 2.0 cm gastrohepatic lymph node, stable. It is heterogeneou s suggesting some areas of necrosis. There is a second 9 mm node just inferior t o the large node. There is an upper limits of normal [place] hepatic/peripancreati c node measuring 1 cm. No additional abdominal adenopathy. No ascites. No free a ir.VASCULATURE: Abdominal aorta is nonaneurysmal.PELVIC ORGANS/BLADDER: Bilater al tubal ligation clips. 2.5 cm dominant follicle left ovary. There is no pelvic fluid or adenopathy.BONES AND SOFT TISSUES: No suspicious osseous lesions.IMPR ESSION:1.4.1 cm gastrohepatic lymph node with an immediately adjacent 9 mm lymph node. While nonspecific, they are most concerning for malignancy such as lympho ma or metastatic disease. Consider endoscopic ultrasound with tissue sampling. P ET CT could also be performed.2.Additional findings as above.[facility]-[id number] [facility] Methodist[facility] Chest Wo [id number] 08:24:54Hm Interface, Radiology Results 09/12/2019 8:27 AM CDTEXAMINATION:CT CHEST WO CONTRASTCLINICAL HISTORY:R91.1 Solitary pulmonary nodule, Pulmonary nodule along the right lower lobe concern for malignancy versus calcified lymph no deTECHNIQUE:Multiple axial images of the chest were obtained without intravenous contrast. The lack of intravenous contrast reduces the sensitivity of detecting solid organ disease and evaluating vasculature. Sagittal and coronal computeriz ed reformatted images were also obtained.CT imaging was performed with iterative reconstruction techniques and/or automated exposure control to reduce radiation dose.COMPARISON:None.FINDINGS:1.No pulmonary infiltrates or nodules are seen.2. Interstitial markings are not increased. There are no areas of groundglass opaci fication.3.No pleural or pericardial effusions.4.Thoracic aorta is of normal marisabel iber. No enlarged hilar or mediastinal lymph nodes.5.Limited scans through the u pper abdomen demonstrate enlarged lymph nodes around the celiac axis. Complete e valuation with CT scan of the abdomen would be suggested if this has not been pr eviously performed.IMPRESSION:No pulmonary abnormality. Enlarged upper retroperi toneal lymph nodes; further evaluation with CT scan of the abdomen suggested if this has not been previously performed.[facility]-[id number] MethodistSCR MAMM BILATERAL KODY CAD [id number] 15:59:29 - SCR MAMM BILATERAL KODY CAD DIGITALBILATERAL FIRST EVER DIGITAL SCREENING MAMMOGRAM 3D/2D WITH CAD: 07/21/2019CLINICAL: Asymptomatic. Digital breast tomosynthesis was performed in addition to routine CC and MLO views. Technically limited due to patient factors.Current mammographic images were evaluated by either a [employer] M-Vu or a [employer] ImageVaxxaser CAD (computer aided detection system). No prior exams were available for comparison. Baseline. There are scattered fibroglandular tissues in both breasts. There are benign vascular calcifications in both breasts. No suspicious mass, architectural distortion, malignant type calcification, or lymph node abnormality detected. IMPRESSION: BENIGNThere is no mammographic evidence of malignancy. Resume annual screening mammography in one year. Regino Mcintyre M.D. [facility]/:07/21/2019 15:59:29 Media Executive: Britt EVERETT, [facility]-letter sent: BIRADS 1-2 Normal Mammogram BI-RADS: 2 Benign- CT MAXIFAC W W/O [id number] 22:22:00 Name: ATKINS,JANE HILARIO [facility] : 1980 Age/S: 38 / F [address] [facility] Unit #: [id number] Loc: [place] [address] Phys: Patrick León MD Acct: [id number] Di s Date: Status: REG ER PHONE #: Exam Date: 07/17/2019 2150 FAX #: Reason: FACIAL SWELLING EXAMS: CPT CODE: [id number] CT MAXIFAC W W/O CONT 03000 HISTORY: Facial swelling. COMPARISON: None available. CT facial bones with and without contrast: 100 mL of Isovue-370. Automated exposure control. The visualized brain parenchyma is enhancing homogeneously. In traorbital contents are unremarkable. Mucosal thickening of the floor of the right maxillary sinus. Mastoid air cells are clear. Right facial swe lling consistent with cellulitis. No drainable abscess collection noted. Hard and soft palate are extensively obscured by artifact from patient's dental work. Base of the tongue and oral tongue enhancing ho mogeneously and are unremarkable. Symmetrical submandibular and parotid g lands enhancing homogeneously. No sialolith seen on the precontrast exam. Pathologic level 1 and 2 adenopathy measuring up to 1.4 cm bilater ally. Epiglottis and aryepiglottic folds and the uvula are unremar kable. Piriform sinuses and vallecula are unremarkable. Carotid spaces a re symmetrical. No tonsillar or prevertebral or parapharyngeal abscess either. Symmetrical fossa of Rosenmueller. True and false cor ds are normal. Incompletely included trachea is unremarkable. Incomplete ly included thyroid glands are unremarkable. Rest of the subcutaneous tis sues are unremarkable. No erosion or destruction of the visualized bony s keleton is noted. IMPRESSION: Right facial bert lulitis without abscess. Patent airway. Pathologic level 1 and 2 adeno missy measuring up to 1.4 cm. No tonsillar or parapharyngeal o r retropharyngeal abscess. Mild chronic right maxillary sinusitis. at 2222 Reported and signed by: [place] Black M.D. PAGE 1 Signed Report (CONTINUED) Name: JANE ATKINS [facility] : 1980 Age/S : 38 / F [address] [facility] Unit #: [id number] Loc: [place] [address] Phys: Helena León MD Acct: [id number] Dis Date: Status: REG ER PHONE #: [phone] Exam Date: 07/17/20192149 FAX #: [phone] Reason: F ACIAL SWELLING EXAMS: CPT CODE: [id number] CT MAXIFAC W W/O CONT 85829 <Continued> CC: Tre Viveros DO Technologist:ABDELRAHMAN BACON RT(R),RDMS,CT CTDI: DLP: Trnscb Date/Time: 07/17/2019 (2221) t.[email or web address] Orig Print D/T: S: 07/17/2019 (8957) PAGE 2 Signed Report HCG SERUM [id number] 21:52:00* Test Item Value Reference Range Interpretation Comments HCG SERUM QUAL (test code = HCGQL) NEGATIVE NEGATIVE This HCGQL test is NOT applicable for MALE patients.Check with nurse about probable order error.If Tumor Marker Test needed, nurse should order test "HCGTU"(Test #550.24671) ADD ONLACTIC [id number] 21:07:00* Test Item Value Reference Range Interpretation Comments LACTIC ACID (test code = LACT) 1.9 MMOL/L 0.4-1.9 N BASIC METABOLIC [id number] 20:57:00* Test Item Value Reference Range Interpretation Comments SODIUM (test code = NA) 138 mmol/L 136-145 N POTASSIUM (test code = K) 3.7 mmol/L 3.5-5.1 N CHLORIDE (test code = CL) 103 mmol/L 101-109 N CARBON DIOXIDE (test code = CO2) 26.1 mmol/L 21-32 N ANION GAP (test code = GAP) 13 mmol/L 10-20 N GLUCOSE (test code = GLU) 185 mg/dL 74-106 H BLOOD UREA NITROGEN (test code = BUN) 11 mg/dL 3-21 N GLOMERULAR FILTRATION RATE (test code = GFR) > 60 mL/min >=60 Estimated GFR by using Modified MDRD formula.Chronic kidney disease is defined as either kidney damageor GFR <60 mL/min/1.73 m2 for >3 months. CREATININE (test code = CREAT) 0.80 mg/dL 0.55-1.3 N BUN/CREATININE RATIO (test code = BUN/CREA) 13.8 10-20 N CALCIUM (test code = CA) 8.1 mg/dL 8.4-10.2 L CBC W/AUTO [id number] 20:48:00* Test Item Value Reference Range Interpretation Comments WHITE BLOOD CELL (test code = WBC) 10.6 K/mm3 4.5-12.5 N RED BLOOD CELL (test code = RBC) 4.28 mill/mm3 3.7-5.2 N HEMOGLOBIN (test code = HGB) 12.5 gram/dL 11.5-15.5 N HEMATOCRIT (test code = HCT) 40.0 % 36.0-46.0 N MEAN CELL VOLUME (test code = MCV) 93.5 fL 80-98 N MEAN CELL HGB (test code = MCH) 29.2 picogram 27.0-33.0 N MEAN CELL HGB CONCETRATION (test code = MCHC) 31.3 gram/dL 33.0-36. 0 L RED CELL DISTRIBUTION WIDTH (test code = RDW) 13.2 % 11.6-16. 2 N RED CELL DISTRIBUTION WIDTH SD (test code = RDW-SD) 45.6 fL 37 .0-51.0 N PLATELET COUNT (test code = PLT) 297 K/mm3 150-450 N MEAN PLATELET VOLUME (test code = MPV) 10.6 fL 6.7-11.0 N NEUTROPHIL % (test code = NT%) 62.3 % 39.0-69.0 N LYMPHOCYTE % (test code = LY%) 26.7 % 25.0-55.0 N MONOCYTE % (test code = MO%) 7.8 % 0.0-10.0 N EOSINOPHIL % (test code = EO%) 2.1 % 0.0-5.0 N BASOPHIL % (test code = BA%) 0.3 % 0.0-1.0 N NEUTROPHIL # (test code = NT#) 6.64 K/mm3 1.8-7.7 N LYMPHOCYTE # (test code = LY#) 2.84 K/mm3 1.0-5.0 N MONOCYTE # (test code = MO#) 0.83 K/mm3 0-0.8 H EOSINOPHIL # (test code = EO#) 0.22 K/mm3 0.0-0.5 N BASOPHIL # (test code = BA#) 0.03 K/mm3 0.0-0.2 N MANUAL DIFF REQUIRED (test code = MDIFF) NO - US RETRO [id number] 18:54:00 Name: JANE ATKINS [facility] : 1980 Age/S: 38 / F [address] [facility] Unit #: [id number] Loc: [facility] [place] [address] Phys: Tre Viveros DO Acct: [id number] Dis Date: Status: REG CLI PHONE #: [phone] Exam Date: 01/08/2019 1841 FAX #: [phone] Reason: UTI EXAMS: CPT CODE: [id number] US RETRO LTD [id number] REASON FOR EXAM: UTI EXAM ORDER DATE: 01/08/2019 6:24 PM Attending MGerald.: Tre Viveros DO PROCEDURE: - US RETRO LTD Comparison: CT of the abdomen and pelvis May 21, 2016 FINDINGS: The right kidney measures 12.5 x 5.4 x 5.7 cm. The cross-sectional thickness of the right renal cortex measured 1.3 cm. There is no evidence of hydronephrosis, nephrolithiasis, or sonographically evident renal mass. The left kidney measures 11.9 x 6.7 x 6.0 cm. The cross-sectional thickness of the left renal cortex measured 1.7 cm. There is no evidence of hydronephrosis, nephrolithiasis, or sonographically evident renal mass. The urinary bladder is unremarkable IMPRESSION: Sonographically unremarkable kidneys. at 1854 Reported and signed by: Jacky Cardoso MD CC: Tre Viveros DO Technologist: Maricel Garnett RDMS Trnscb Date/Time: 01/08/2019 (1853) [id number] Orig Print D/T: S: 01/08/2019 (8035) Probe: PAGE 1 Signed Report COMPREHENSIVE METABOLIC [id number] 02:41:00* Test Item Value Reference Range Interpretation Comments SODIUM (test code = NA) 140 mmol/L 135-148 N POTASSIUM (test code = K) 3.2 mmol/L 3.5-5.1 L CHLORIDE (test code = CL) 104 mmol/L 101-109 N CARBON DIOXIDE (test code = CO2) 24.6 mmol/L 21-32 N ANION GAP (test code = GAP) 15 mmol/L 10-20 N GLUCOSE (test code = GLU) 119 mg/dL 74-106 H BLOOD UREA NITROGEN (test code = BUN) 11 mg/dL 3-21 N CREATININE (test code = CREAT) 0.80 mg/dL 0.55-1.3 N BUN/CREATININE RATIO (test code = BUN/CREA) 13.8 10-20 N TOTAL PROTEIN (test code = PROT) 7.2 g/dL 6.5-8.4 N ALBUMIN (test code = ALB) 3.1 g/dL 3.4-4.8 L GLOBULIN (test code = GLOB) 4.1 G/DL 1-10 N ALBUMIN/GLOBULIN RATIO (test code = A/G) 0.8 RATIO 0.75-1.50 N CALCIUM (test code = CA) 8.5 mg/dL 8.4-10.2 N BILIRUBIN TOTAL (test code = BILT) 1.10 mg/dL 0.0-1.0 H SGOT/AST (test code = AST) 25 U/L 6-32 N SGPT/ALT (test code = ALT) 27 U/L 12-78 N N ote: Change in REFERENCE RANGE due to new reagent method. ALKALINE PHOSPHATASE TOTAL (test code = ALKP) 93 U/L 38-126 N COMPREHENSIVE METABOLIC [id number] 02:36:00* Test Item Value Reference Range Interpretation Comments SODIUM (test code = NA) 140 mmol/L 135-148 N POTASSIUM (test code = K) 3.2 mmol/L 3.5-5.1 L CHLORIDE (test code = CL) 104 mmol/L 101-109 N CARBON DIOXIDE (test code = CO2) 24.6 mmol/L 21-32 N ANION GAP (test code = GAP) 15 mmol/L 10-20 N GLUCOSE (test code = GLU) 119 mg/dL 74-106 H BLOOD UREA NITROGEN (test code = BUN) 11 mg/dL 3-21 N CREATININE (test code = CREAT) 0.80 mg/dL 0.55-1.3 N BUN/CREATININE RATIO (test code = BUN/CREA) 13.8 10-20 N TOTAL PROTEIN (test code = PROT) gram/dL 6.4-8.2 ALBUMIN (test code = ALB) g/dL 3.4-5.0 GLOBULIN (test code = GLOB) g/dL 2.7-4.2 ALBUMIN/GLOBULIN RATIO (test code = A/G) 0.75-1.50 CALCIUM (test code = CA) 8.5 mg/dL 8.4-10.2 N BILIRUBIN TOTAL (test code = BILT) mg/dL 0.2-1.2 SGOT/AST (test code = AST) IUnit/L 15-37 SGPT/ALT (test code = ALT) U/L 10-69 ALKALINE PHOSPHATASE TOTAL (test code = ALKP) IUnit/L 45-117 MONO [id number] 02:27:00* Test Item Value Reference Range Interpretation Comments MONO SCREEN (test code = MONO) NEGATIVE NEGATIVE URINALYSIS [id number] 02:26:00* Test Item Value Reference Range Interpretation Comments UA COLOR (test code = COLU) YELLOW YELLOW UA APPEARANCE (test code = APPU) SLIGHT HAZY CLEAR A UA GLUCOSE DIPSTICK (test code = DGLUU) NORMAL mg/dL NEGATIVE UA BILIRUBIN DIPSTICK (test code = BILU) NEGATIVE mg/dL NEGATIVE UA KETONE DIPSTICK (test code = KETU) neg mg/dL NEGATIVE UA SPECIFIC GRAVITY (test code = SGU) 1.020 1.001-1.035 UA BLOOD DIPSTICK (test code = CRISTOPHER) 250 (4+) Bryon/uL NEGATIVE A UA PH DIPSTICK (test code = AALIYAH) 5.0 5.0-8.0 UA PROTEIN DIPSTICK (test code = PROU) 30 (1+) mg/dL Neg-15 A UA UROBILINIOGEN DIPSTICK (test code = URO) norm mg/dL 0.0-0.2 UA NITRITE DIPSTICK (test code = RANDALL) NEGATIVE NEGATIVE UA LEUKOCYTE ESTERASE DIPSTICK (test code = LEUU) 500/uL (3+) uL NE GATIVE A UA WBC (test code = WBCU) 50-100 per HPF 0-5 A IN SOME URINARY TRACT INFECTIONS THERE MAY NOT BE ENOUGHWBCs IN THE URINE TO TRIGGER AN AUTOMATIC (REFLEX) URINECULTURE. A SEPERATE ORDER FOR URINE CULTURE IS RECOMMENDEDIF THERE IS STRONG SUPPORT FOR A URINARY TRACT INFECTIONCLINICALLY. UA RBC (test code = RBCU) 3-5 per HPF 0-5 A UA EPITHELIAL CELLS (test code = EPIU) Many (>10/hpf) per HPF Few A UA BACTERIA (test code = BACU) MODERATE per HPF NONE A UA MUCUS (test code = MUCU) MANY per LPF NONE-FEW URINALYSIS W/O [id number] 02:26:00* Test Item Value Reference Range Interpretation Comments UA MICROSCOPIC NEEDED? (test code = UAMICRO) YES UR HCG [id number] 02:26:00* Test Item Value Reference Range Interpretation Comments UR HCG QUAL (test code = HCGQLU) NEGATIVE This HCGQL test is NOT applicable for MALE patients.Check with nurse about probable order error.If Tumor Marker Test needed, nurse should order test "HCGTU"(Test #550.31526) URINALYSIS [id number] 02:12:00* Test Item Value Reference Range Interpretation Comments UA COLOR (test code = COLU) YELLOW YELLOW UA APPEARANCE (test code = APPU) SLIGHT HAZY CLEAR A UA GLUCOSE DIPSTICK (test code = DGLUU) NORMAL mg/dL NEGATIVE UA BILIRUBIN DIPSTICK (test code = BILU) NEGATIVE mg/dL NEGATIVE UA KETONE DIPSTICK (test code = KETU) neg mg/dL NEGATIVE UA SPECIFIC GRAVITY (test code = SGU) 1.020 1.001-1.035 UA BLOOD DIPSTICK (test code = CRISTOPHER) 250 (4+) Bryon/uL NEGATIVE A UA PH DIPSTICK (test code = AALIYAH) 5.0 5.0-8.0 UA PROTEIN DIPSTICK (test code = PROU) 30 (1+) mg/dL Neg-15 A UA UROBILINIOGEN DIPSTICK (test code = URO) norm mg/dL 0.0-0.2 UA NITRITE DIPSTICK (test code = RANDALL) NEGATIVE NEGATIVE UA LEUKOCYTE ESTERASE DIPSTICK (test code = LEUU) 500/uL (3+) uL NE GATIVE A UA WBC (test code = WBCU) per HPF 0-5 URINALYSIS W/O [id number] 02:12:00* Test Item Value Reference Range Interpretation Comments UA MICROSCOPIC NEEDED? (test code = UAMICRO) YES UR HCG [id number] 02:12:00* Test Item Value Reference Range Interpretation Comments UR HCG QUAL (test code = HCGQLU) URINALYSIS [id number] 02:12:00* Test Item Value Reference Range Interpretation Comments UA COLOR (test code = COLU) YELLOW YELLOW UA APPEARANCE (test code = APPU) SLIGHT HAZY CLEAR A UA GLUCOSE DIPSTICK (test code = DGLUU) NORMAL mg/dL NEGATIVE UA BILIRUBIN DIPSTICK (test code = BILU) NEGATIVE mg/dL NEGATIVE UA KETONE DIPSTICK (test code = KETU) neg mg/dL NEGATIVE UA SPECIFIC GRAVITY (test code = SGU) 1.020 1.001-1.035 UA BLOOD DIPSTICK (test code = CRISTOPHER) 250 (4+) Bryon/uL NEGATIVE A UA PH DIPSTICK (test code = AALIYAH) 5.0 5.0-8.0 UA PROTEIN DIPSTICK (test code = PROU) 30 (1+) mg/dL Neg-15 A UA UROBILINIOGEN DIPSTICK (test code = URO) norm mg/dL 0.0-0.2 UA NITRITE DIPSTICK (test code = RANDALL) NEGATIVE NEGATIVE UA LEUKOCYTE ESTERASE DIPSTICK (test code = LEUU) 500/uL (3+) uL NE GATIVE A UA WBC (test code = WBCU) per HPF 0-5 URINALYSIS W/O [id number] 02:12:00* Test Item Value Reference Range Interpretation Comments UA MICROSCOPIC NEEDED? (test code = UAMICRO) YES UR HCG [id number] 02:12:00* Test Item Value Reference Range Interpretation Comments UR HCG QUAL (test code = HCGQLU) NEGATIVE This HCGQL test is NOT applicable for MALE patients.Check with nurse about probable order error.If Tumor Marker Test needed, nurse should order test "HCGTU"(Test #550.27278) URINALYSIS [id number] 02:12:00* Test Item Value Reference Range Interpretation Comments UA COLOR (test code = COLU) YELLOW YELLOW UA APPEARANCE (test code = APPU) SLIGHT HAZY CLEAR A UA GLUCOSE DIPSTICK (test code = DGLUU) NORMAL mg/dL NEGATIVE UA BILIRUBIN DIPSTICK (test code = BILU) NEGATIVE mg/dL NEGATIVE UA KETONE DIPSTICK (test code = KETU) neg mg/dL NEGATIVE UA SPECIFIC GRAVITY (test code = SGU) 1.020 1.001-1.035 UA BLOOD DIPSTICK (test code = CRISTOPHER) 250 (4+) Bryon/uL NEGATIVE A UA PH DIPSTICK (test code = AALIYAH) 5.0 5.0-8.0 UA PROTEIN DIPSTICK (test code = PROU) 30 (1+) mg/dL Neg-15 A UA UROBILINIOGEN DIPSTICK (test code = URO) norm mg/dL 0.0-0.2 UA NITRITE DIPSTICK (test code = RANDALL) NEGATIVE NEGATIVE UA LEUKOCYTE ESTERASE DIPSTICK (test code = LEUU) 500/uL (3+) uL NE GATIVE A UA WBC (test code = WBCU) per HPF 0-5 URINALYSIS W/O [id number] 02:12:00* Test Item Value Reference Range Interpretation Comments UA MICROSCOPIC NEEDED? (test code = UAMICRO) YES UR HCG [id number] 02:12:00* Test Item Value Reference Range Interpretation Comments UR HCG QUAL (test code = HCGQLU) CBC W/AUTO [id number] 02:11:00* Test Item Value Reference Range Interpretation Comments WHITE BLOOD CELL (test code = WBC) 14.3 K/mm3 4.5-12.5 H RED BLOOD CELL (test code = RBC) 3.90 mill/mm3 3.7-5.2 N HEMOGLOBIN (test code = HGB) 11.8 gram/dL 11.5-15.5 N HEMATOCRIT (test code = HCT) 35.7 % 36.0-46.0 L MEAN CELL VOLUME (test code = MCV) 91.5 fL 80-98 N MEAN CELL HGB (test code = MCH) 30.3 picogram 27.0-33.0 N MEAN CELL HGB CONCETRATION (test code = MCHC) 33.1 gram/dL 33.0-36. 0 N RED CELL DISTRIBUTION WIDTH (test code = RDW) 13.8 % 11.6-16. 2 N RED CELL DISTRIBUTION WIDTH SD (test code = RDW-SD) 45.1 fL 39 .1-52.0 N PLATELET COUNT (test code = PLT) 264 K/mm3 150-450 N MEAN PLATELET VOLUME (test code = MPV) 10.5 fL 6.7-11.0 N NEUTROPHIL % (test code = NT%) 75.2 % 39.0-69.0 H LYMPHOCYTE % (test code = LY%) 17.8 % 25.0-55.0 L MONOCYTE % (test code = MO%) 6.8 % 0.0-10.0 N EOSINOPHIL % (test code = EO%) 0.1 % 0.0-5.0 N BASOPHIL % (test code = BA%) 0.1 % 0.0-1.0 N NEUTROPHIL # (test code = NT#) 10.75 K/mm3 1.8-7.7 H LYMPHOCYTE # (test code = LY#) 2.54 K/mm3 1.0-5.0 N MONOCYTE # (test code = MO#) 0.97 K/mm3 0-0.8 H EOSINOPHIL # (test code = EO#) 0.02 K/mm3 0.0-0.5 N BASOPHIL # (test code = BA#) 0.02 K/mm3 0.0-0.2 N MANUAL DIFF REQUIRED (test code = MDIFF) NO
[2020-04-13] MEDS ORDERED: SODIUM CHLORIDE 0.9% 1000ML 1,000 ML IV STA ×2 (15:35→17:17)
[2020-04-13] MEDS ORDERED: ASPIRIN 81 MG CHEW TAB PO ONE (15:45)
--- NOTE | 2020-04-13 16:09 | Diagnostic Imaging Report ---
EXAMINATION: CHEST SINGLE (PORTABLE) INDICATION: Chest pain COMPARISON: None FINDINGS: LINES/TUBES:Right chest port terminates in the superior vena cava. LUNGS:The lungs are well-inflated. No focal consolidation or pulmonary edema. PLEURA:No pleural effusion or pneumothorax. MEDIASTINUM:The cardiomediastinal silhouette appears normal in size and shape. BONES/SOFT TISSUES:No acute osseous injury. ABDOMEN:No free air under the diaphragm. IMPRESSION: No focal pneumonia or pulmonary edema. Signed by: Santino Correa MD on 04/13/2020 4:06 PM
[2020-04-13 17:02] LABS: BASOPHILS % 0.5 % (0.0-1.0); EOSINOPHILS # (AUTO) 0.1 (0.0-0.4); EOSINOPHILS % 0.7 % (0.0-6.0); HEMOGLOBIN 11.8 g/dL (12.0-16.0); LYMPHOCYTES # (AUTO) 2.6 (1.0-3.2); LYMPHOCYTES % 34.9 % (18.0-39.1); MEAN CORPUSCULAR HEMOGLOBIN 29.9 pg (28-32); MEAN CORPUSCULAR HGB CONC 31.9 g/dL (31-35); MEAN CORPUSCULAR VOLUME 93.9 fL (81-99); MONOCYTES # (AUTO) 0.3 (0.2-0.8); MONOCYTES % 3.9 % (4.4-11.3); NEUTROPHILS # (AUTO) 4.4 (2.1-6.9); NEUTROPHILS % 59.2 % (38.7-80.0); PLATELET COUNT 314 x10e3/uL (140-360); RED BLOOD COUNT 3.94 x10e6/uL (3.6-5.1); RED CELL DISTRIBUTION WIDTH 14.5 % (11.7-14.4)
[2020-04-13 17:17] LABS: INR 0.83; PROTHROMBIN TIME 11.9 seconds (11.9-14.5)
[2020-04-13 17:18] LABS: PARTIAL THROMBOPLASTIN TIME 23.9 seconds (23.8-35.5)
[2020-04-13 17:21] LABS: ALANINE AMINOTRANSFERASE 46 IU/L (0-55); ALBUMIN 3.4 g/dL (3.5-5.0); ALKALINE PHOSPHATASE 127 IU/L (40-150); ANION GAP 15.8 mmol/L (8-16); BLOOD UREA NITROGEN 20 mg/dL (7-26); BUN/CREATININE RATIO 23 (6-25); CALCIUM 9.2 mg/dL (8.4-10.2); CARBON DIOXIDE 24 mmol/L (22-29); CHLORIDE 101 mmol/L (98-107); CREATINE KINASE 70 IU/L (29-168); CREATININE, SERUM 0.86 mg/dL (0.57-1.11); EST GLOMERULAR FILTRATION RATE > 60 ML/MIN (60-); GLUCOSE 228 mg/dL (74-118); MAGNESIUM 1.8 MG/DL (1.3-2.1); POTASSIUM 3.8 mmol/L (3.5-5.1); SODIUM 137 mmol/L (136-145)
[2020-04-13 17:26] LABS: B-TYPE NATRIURETIC PEPTIDE2 < 10.0 pg/mL (0-100)
[2020-04-13] MEDS ORDERED: CEFEPIME 2 GM/NS 0.9% 100 ML 100 ML IV ONE (17:30)
[2020-04-13 18:39] LABS: CLARITY,URINE SL CLOUDY (CLEAR); COLOR,URINE YELLOW (YELLOW); LEUKOCYTE ESTERASE ,URINE NEGATIVE (NEGATIVE); NITRITE,URINE NEGATIVE (NEGATIVE); PROTEIN,URINE DIPSTICK NEGATIVE (NEGATIVE)
[2020-04-13 18:40] LABS: BILIRUBIN,URINE NEGATIVE (NEGATIVE); KETONES,URINE TRACE (NEGATIVE); URINE UROBILINOGEN 0.2 mg/dL (0.2 - 1)
[2020-04-13 18:41] LABS: BACTERIA,URINE RARE /HPF; EPITHELIAL CELLS,URINE FEW /LPF
[2020-04-13] MEDS ORDERED: SODIUM CHLORIDE 0.9% 1000ML 1,000 ML ONE (19:11)
[2020-04-13] MEDS ORDERED: ENOXAPARIN SODIUM INJ 100 MG/ML SYR SC ONE (19:15)
--- NOTE | 2020-04-13 19:25 | NUR ---
PATIENT TAKEN BACK TO ROOM FROM [facility]
[2020-04-13] MEDS ORDERED: ONDANSETRON HCL INJ 2MG/ML 2ML 2 MG/ML VIAL IV PRN (19:30)
[2020-04-13] MEDS ORDERED: NITROGLYCERIN 0.4 MG SUBL SL PRN (19:30)
[2020-04-13] MEDS ORDERED: MORPHINE SULFATE 2 MG/ML SYR 1ML IV PRN (19:30)
--- NOTE | 2020-04-13 19:38 | Emergency Department Note ---
History of Present Illnes History of Present Illness Chief Complaint: Chest Pain History of Present Illness This is a 39 year old female HERE FOR CHEST PAIN SINCE YESTERDAY, WAS ADVISED BY PCP TO COME TO ER. STATES THAT SHE FELT CHEST PRESSURE, NOW STATES THAT SHE CANNOT TAKE A FULL BREATH. HX OF STAGE 4 ADENOCARCINOMA. CURRENTLY RECEIVING IV CHEMOTHERAPY. Historian: Patient Arrival Mode: Car Property Maintenance Supervisor Required: No Onset (how long ago): day(s) (YESTERDAY) Location: CHEST Quality: PRESSURE Radiation: non-radiation Severity: moderate Onset quality: gradual Timing of current episode: intermittent Progression: waxing and waning Chronicity: new Context: recent illness Relieving factors: none Exacerbating factors: other (DEEP BREATH) Associated symptoms: denies other symptoms Treatments prior to arrival: none Past Medical/Family History Physician Review I have reviewed the patient's past medical and family history. Any updates have been documented here. Past Medical History Recent Fever: No Clinical Suspicion of Infectio: No New/Unexplained Change in Ment: No Past Medical History: Diabetes, Cancer, Osteoarthritis Past Surgical History: Cholecysctectomy, T&A Social History Smoking Cessation: Former smoker Counseling Performed: No Alcohol Use: None Any Illegal Drug Use: No TB Exposure/Symptoms: No Physically hurt or threatened: No Family History Family history of heart diseas: No Other Any Pre-Existing Lines (PICC,: No Review of Systems Review of Systems Constitutional: no symptoms EENTM: no symptoms Cardiovascular: as per HPI, chest pain Respiratory: no symptoms Gastrointestinal: no symptoms Genitourinary: no symptoms Musculoskeletal: no symptoms Neurological: no symptoms Psychological: no symptoms Endocrine: no symptoms Hematological/Lymphatic: no symptoms Review of other systems All other systems reviewed and negative. Physical Exam Related Data Allergies: Coded Allergies: meperidine (Verified Allergy, Severe, 04/13/20) Triage Vital Signs Vital Signs Date Time Temp Pulse Resp B/P (MAP) Pulse Ox O2 Delivery O2 Flow Rate FiO2 04/13/20 15:08 97.6 115 18 140/103 99 Physical Exam CONSTITUTIONAL Constitutional: well-developed, well-nourished HENT HENT: normocephalic, atraumatic, oropharynx clear/moist, nose normal HENT L/R: left ext ear normal, right ext ear normal EYES Eyes: PERRL, conjunctivae normal NECK Neck: ROM normal PULMONARY Pulmonary: effort normal, breath sounds normal CARDIOVASCULAR Cardiovascular: regular rhythm, heart sounds normal, capillary refill normal, normal rate GASTROINTESTINAL Abdominal: soft, nontender, bowel sounds normal GENITOURINARY Genitourinary: exam deferred SKIN Skin: warm, dry MUSCULOSKELETAL Musculoskeletal: ROM normal NEUROLOGICAL Neurological: alert, oriented x 3, no gross motor or sensory deficits PSYCHOLOGICAL Psychological: mood/affect normal, judgement normal Results Laboratory Result Diagram: 04/13/20 1640 04/13/20 1640 Laboratory Laboratory Tests Test 04/13/20 16:55 04/13/20 16:40 Urine Color Yellow (YELLOW) Urine Clarity Sl cloudy (CLEAR) Urine pH 5.5 (5 - 7) Urine Specific [place] >=1.030 (1.010-1.025) Urine Protein Negative (NEGATIVE) Urine Glucose (UA) 2+ (NEGATIVE) Urine Ketones Trace (NEGATIVE) Urine Blood Negative (NEGATIVE) Urine Nitrite Negative (NEGATIVE) Urine Bilirubin Negative (NEGATIVE) Urine Urobilinogen 0.2 mg/dL (0.2 - 1) Urine Leukocyte Esterase Negative (NEGATIVE) Urine RBC None /HPF (0-5) Urine WBC None /HPF (0-5) Urine Epithelial Cells Few /LPF (NONE) Urine Bacteria Rare /HPF (NONE) White Blood Count 7.36 x10e3/uL (4.8-10.8) Red Blood Count 3.94 x10e6/uL (3.6-5.1) Hemoglobin 11.8 g/dL (12.0-16.0) Hematocrit 37.0 % (34.2-44.1) Mean Corpuscular Volume 93.9 fL (81-99) Mean Corpuscular Hemoglobin 29.9 pg (28-32) Mean Corpuscular Hemoglobin Concent 31.9 g/dL (31-35) Red Cell Distribution Width 14.5 % (11.7-14.4) Platelet Count 314 x10e3/uL (140-360) Neutrophils (%) (Auto) 59.2 % (38.7-80.0) Lymphocytes (%) (Auto) 34.9 % (18.0-39.1) Monocytes (%) (Auto) 3.9 % (4.4-11.3) Eosinophils (%) (Auto) 0.7 % (0.0-6.0) Basophils (%) (Auto) 0.5 % (0.0-1.0) Neutrophils # (Auto) 4.4 (2.1-6.9) Lymphocytes # (Auto) 2.6 (1.0-3.2) Monocytes # (Auto) 0.3 (0.2-0.8) Eosinophils # (Auto) 0.1 (0.0-0.4) Basophils # (Auto) 0.0 (0.0-0.1) Absolute Immature Granulocyte (auto 0.06 x10e3/uL (0-0.1) Prothrombin Time 11.9 seconds (11.9-14.5) Prothromb Time International Ratio 0.83 Activated Partial Thromboplast Time 23.9 seconds (23.8-35.5) D-Dimer Quantitative (PE/DVT) 407 ng/mL (0-400) Sodium Level 137 mmol/L (136-145) Potassium Level 3.8 mmol/L (3.5-5.1) Chloride Level 101 mmol/L (98-107) Carbon Dioxide Level 24 mmol/L (22-29) Anion Gap 15.8 mmol/L (8-16) Blood Urea Nitrogen 20 mg/dL (7-26) Creatinine 0.86 mg/dL (0.57-1.11) Estimat Glomerular Filtration Rate > 60 ML/MIN (60-) BUN/Creatinine Ratio 23 (6-25) Glucose Level 228 mg/dL (74-118) Lactic Acid Level 2.4 mmol/L (0.5-2.0) Calcium Level 9.2 mg/dL (8.4-10.2) Magnesium Level 1.8 MG/DL (1.3-2.1) Total Bilirubin 0.2 mg/dL (0.2-1.2) Aspartate Amino Transf (AST/SGOT) 38 IU/L (5-34) Alanine Aminotransferase (ALT/SGPT) 46 IU/L (0-55) Alkaline Phosphatase 127 IU/L (40-150) Creatine Kinase 70 IU/L (29-168) Creatine Kinase MB 1.00 ng/mL (0-5.0) Troponin I 0.014 ng/mL (0-0.300) B-Type Natriuretic Peptide < 10.0 pg/mL (0-100) Total Protein 6.9 g/dL (6.5-8.1) Albumin 3.4 g/dL (3.5-5.0) Globulin 3.5 g/dL (2.3-3.5) Albumin/Globulin Ratio 1.0 (0.8-2.0) Lab results reviewed: Yes Imaging Imaging results reviewed: Yes Impressions EXAMINATION: CHEST SINGLE (PORTABLE) INDICATION: Chest pain COMPARISON: None FINDINGS: LINES/TUBES:Right chest port terminates in the superior vena cava. LUNGS:The lungs are well-inflated. No focal consolidation or pulmonary edema. PLEURA:No pleural effusion or pneumothorax. MEDIASTINUM:The cardiomediastinal silhouette appears normal in size and shape. BONES/SOFT TISSUES:No acute osseous injury. ABDOMEN:No free air under the diaphragm. IMPRESSION: No focal pneumonia or pulmonary edema. Signed by: Santino Correa MD on 04/13/2020 4:06 PM Procedures 12 Lead ECG Interpretation Property Maintenance Supervisor: Interpreted by ED physician Date: Apr 13, 2020 Time: 15:13 Prior CODING AND REIMBURSEMENT SPECIALIST tracings: reviewed Rhythm: sinus tachycardia Rate: tachycardia (111) QRS axis: normal ST segments normal: Yes T waves normal: Yes Clinical Impression: abnormal ECG Critical Care Time Subsequent provider I assumed direction of critical care for this patient from another provider of my specialty. Assessment & Plan Reassessment Reassessment CP - CHECK CBC, CHEM'S, CARDIACS, PT/PTT, D-DIMER, CXR, ECG. IF D-DIMER POSITIVE WILL GET CT CHEST. R/O STEMI/NSTEMI, PULM EMBOLUS, PULM MASS, PNEUMONIA CT PENDING - DR GAMBOA TO F/U RESULTS Assessment & Plan Final Impression: (1) CHEST PAIN, UNSPECIFIED Assessment & Plan ADMIT Depart Disposition: ADMITTED Last Vital Signs Date Time Temp Pulse Resp B/P (MAP) Pulse Ox O2 Delivery O2 Flow Rate FiO2 04/13/20 15:08 97.6 115 18 140/103 99 Medications in the ED Sodium Chloride 1,000 ml @ 0 mls/hr Q0M STAT IV Last administered on 04/13/20at 18:19; Admin Dose 999 MLS/HR; Start 04/13/20 at 15:35; Stop 04/13/20 at 15:39; Status DC Aspirin 81 mg PRN ONCE PO ; Start 04/13/20 at 15:45; Stop 04/13/20 at 15:46; Status DC Sodium Chloride 1,000 ml @ 0 mls/hr Q0M STAT IV ; Start 04/13/20 at 17:17; Stop 04/13/20 at 17:18; Status DC Cefepime HCl 100 ml @ 200 mls/hr NOW ONCE IV Last administered on 04/13/20at 18:20; Admin Dose 200 MLS/HR; Start 04/13/20 at 17:30; Stop 04/13/20 at 17:59; Status DC Enoxaparin Sodium 100 mg NOW ONCE SC ; Start 04/13/20 at 19:15; Stop 04/13/20 at 19:16; Status DC Sodium Chloride 1,000 ml @ STK-MED ONCE .ROUTE ; Start 04/13/20 at 19:11; Stop 04/13/20 at 19:05; Status DC MADELINE GLEZ MD Apr 13, 2020 19:38
--- OUTSIDE RECORDS SUMMARY | 2020-04-13 19:57 | XMS REPORT | Clinical Summary ---
Author Author [facility] Address Unknown Phone Unavailable Care Team Providers Care Division Manager Name Role Phone Tre Viveros DO [...] MA 09/22/2019 Orders Only Sports Medicine Michelle Muryr MA Retroperitoneal lymphadenopathy (Primary Dx) 09/22/2019 Orders [...] Routine 09/28/2019 Retroperit gaytan CONTRAST 7:09 PM TILE MOLDER HAND lymphadenopathy ESTIMATED GFR Routine 09/28/2019 6:10 PM TILE MOLDER HAND CREATININE LEVEL Routine 09/28/2019 6:[address] CHEST WO CONTRAST Routine 09/12/2019 Solitary pulmonary nodule 8:16 AM CDT XR LUMBAR SPINE COMPLETE Routine 07/08/2019 Acute bilateral low back 4+ VW 10:39 AM CDT pain without sciati ca MRI KNEE WO CONTRAST LEFT Routine 06/04/2019 Steam Tender fortino pain of both 2:57 PM CDT [...] City/State/Zipcode Ph one Number [facility] [address] [place] [address] * CT Abdomen Pelvis W Contrast (09/28/2019 7:09 PM TILE MOLDER HAND) Specimen Narrative Performed At EXAMINATION: CT ABDOMEN [...] also be performed. 2.Additional findings as above. [facility]-[id number] Procedure Note Hm Interface, Radiology Results Incoming - 09/28/2019 7:32 PM TILE MOLDER HAND EXAMINATION: CT ABDOMEN PELVIS W CONTRAST CLINICAL [...] also be performed. 2.Additional findings as above. [facility]-[id number] Performing Organization Address City/[facility] [place] one Number [facility] [address] [place] [address] * Estimated GFR (09/28/2019 6:10 PM TILE MOLDER HAND) Estimated GFR >=90 mL/min/1.73 m2 [place] Comment: HOLINESS SUGAR [facility] Interpretation G1 >=90 Normal or high G2 [...] 2014. Specimen Plasma specimen Performing Organization Address City/[facility]/Zipcode Ph one Number [facility] [place] [address] [place], [place] [address] PATHOLOGY AND GENOMIC MEDICINE [facility] [address] * Creatinine level (09/28/2019 6:10 PM TILE MOLDER HAND) Creatinine 0.50 0.50 - 0.90 mg/dL [facility] Specimen Plasma specimen Performing Organization Address [facility] [place] one Number [facility] [place] [address] [place], [place] [address] PATHOLOGY AND GENOMIC MEDICINE [facility] [address] * CT Chest Wo Contrast (09/12/2019 [...] if this has not been previously performed. [facility]-[id number] Procedure Note Interface, Radiology Results Incoming - [...] if this has not been previously performed. [facility]-[id number] Performing Organization Address [facility] [place] Ph [facility] Number [facility] [address] [place] [address] * XR Lumbar Spine Complete 4+ Vw (07/08/2019 10:39 AM CDT) Specimen Narrative Performed At [facility] 5 views of the lumbar spine were obtain ed. No evidence of lumbar levoscoliosis is identified. Mild deg enerative changes of the L5-S1 disc space is identified with no evidence of spondylolysis and/or spondylolisthesis. Incidentally, conc valentin for solitary pulmonary nodule versus calcified lymph node along the r ight lower lobe is visualized requiring further diagnostic imaging. Performing Organization Address [facility] [place] Ph one Number [facility] [address] [place] [address] * MRI Knee Left Wo Contrast (06/04/2019 2:57 PM CDT) Specimen Narrative [facility]formed At [facility] EXAM[facility]ATION: MRI KNEE WO CONTRAST LEF T [...] 4. Additional findings and details as above. [facility]-[id number] Procedure Note Hm Interface, Radiology Results 06/04/2019 [...] Additional findings and details as a jacqueline. [facility]-[id number] Performing Organization Address [facility] one Number [facility] [address] [place] [address] * XR Knee 3 Vw Bilateral (05/26/2019 [...] this time. Performing Organization Address [facility] one Number [facility] [address] [place] [address] * XR Foot 3+ Vw Right (05/22/2019 [...] osseous abnormality. Performing Organization Address [facility] one Number [facility] [address] [place] [address] after 04/13/2019 Insurance Type Payer Benefit Subscriber ID Effective Phone Address Plan / Dates Group PPO BCBS BCBS xxxxxxxxxxxx 2019-P CHOICE resent PPO/BERTIN LAL PPO Advance Directives For more information, please contact: [phone] Patient [employer] Explanation Type Date Recorded Advance Directives, Living Will and Medical Power of Electric Meter Installer
--- OUTSIDE RECORDS SUMMARY | 2020-04-13 19:58 | XMS REPORT | Continuity of Care Document ---
Author Author [facility] t Organization [facility] Address [address] [place] [address] Phone Unavailable Care Team Providers Care Pie Icer Machine Name Role Phone Felice Tre WISDOM PCP Kirstie GLEZ Attphys Unavailable Veronica CONNELL, Steve Cantu Attphys Jeanmarie NICOLE, Michelle Attphys Unavailable Payers Payer Name Policy Type Policy Number Effective Date Expiration Date S alpesh BCBSBCBS CHOICE PPO/FEDERAL EMPL PPOxxxxxxxxxxxx2019-Pre sentPPO xxxxxxxxxxxx 2019 00:00:00 Nemesio Saini Problems This patient has no known problems. Allergies, Adverse Reactions, Alerts Allergy Name Allergy Type Status Severity Reaction(s) Onset Date Inacti ve Date Treating Clinician Comments Source Meperidine Propensity to adverse reactions to drug Active Anaphylaxis 2019-05-22 00:00:00 Nemesio Meth odist meperidine HCl DA Active SV 2018-02-13 00:00:00 [facility] Family History Family Member Diagnosis Comments Start Date Stop Date Source Natural father No Known Problems Davide Saini Natural mother No Known Problems Davide Saini Social History Social Habit Start Date Stop Date Quantity Comments Source Sex Assigned At F Davide Saini Exposure to SARS-CoV-2 (event) Not sure Nemesio Booist Cigarettes smoked current (pack per day) - [...] 2019-09-04 00:00:00 Yes Right foot pain 800mg Q.[id number] Take 800 mg by mo ut 3 (three) times a day. Nemesio Saini keTOROlac (TORadol) injection 60 mg 2019-07-08 11:00:0 0 2019-07-08 11:00:00 No Acute bilateral low back pain without sciatica 60mg Nemesio Saini cyclobenzaprine (FLEXERIL) 10 mg tablet 2019-07-08 00:00:00 Yes 10mg Q.[id number] Take 1 tablet (10 mg total) by [...] 2019-09-04 00:00:00 No Right foot pain 800mg Q.308782347 [id number] Take 800 mg by mouth 3 (three) [...] by mouth 2 (two) times a day. Nemesio Saini phentermine (ADIPEX-P) 37.5 mg tablet 2019-03-28 00:00:00 Y es 37.5mg QD Take 37.5 mg by mouth daily. Nemesio alvarez Procedures Procedure Date / Time Performed Performing Clinician Sourc e XR SHOULDER 2+ VW LEFT 2020-04-01 10:29:[address] ABDOMEN PELVIS W CONTRAST 2019-09-28 19:09:16 Rupesh Matthews CREATININE LEVEL 2019-09-28 18:10:00 Rupesh Matthews [facility] ESTIMATED GFR 2019-09-28 18:10:[address] CHEST WO CONTRAST 2019-09-12 08:16:18 Rupesh Matthews [facility] XR LUMBAR SPINE COMPLETE 4+ VW 2019-07-08 10:39:35 Rupesh Matthews [facility] MRI KNEE WO CONTRAST LEFT 2019-06-04 14:57:14 Rupesh Matthews [place] [facility] XR KNEE 3 VW BILATERAL 2019-05-26 13:56:03 Rupesh Matthews [facility] XR FOOT 3+ VW RIGHT 2019-05-22 13:33:41 Rupesh Matthews Plan of Care Planned Activity Planned Date Details Comments Source Future Scheduled Test 2020-06-11 00:00:00 INFLUENZA VACCINE [code = INFLUENZA VACCINE] Nemesio Saini Future Scheduled Test 1999 00:00:00 Screening for isidro gnant neoplasm of cervix (procedure) [code = 541908223] Nemesio Campoverde Future Scheduled Test 1988 00:00:00 DIABETIC FOOT EXAM [code = DIABETIC FOOT EXAM] [facility] Future Scheduled Test 1988 00:00:00 URINE MICROALBUMIN [code = URINE MICROALBUMIN] [facility] Future Scheduled Test 1978 00:00:00 DIABETIC RETINAL E YE EXAM [code = DIABETIC RETINAL EYE EXAM] Nemesio Saini Encounters Start Date/Time End Date/Time Encounter Type Admission Type [facility] Care Department Encounter ID Source 2020-04-01 00:00:00 2020-04-01 00:00:00 Outpatient RUPESH MATTHEWS [facility] [id number] Nemesio Saini 2020-04-01 00:00:00 2020-04-01 00:00:00 Outpatient RUPESH MATTHEWS [facility] [id number] Nemesio Saini 2019-09-28 00:00:00 2019-09-28 00:00:00 Outpatient RUPESH MATTHEWS [facility] [id number] Nemesio Saini 2019-09-12 00:00:00 2019-09-12 00:00:00 Outpatient RUPESH MATTHEWS [facility] [id number] Nemesio Saini 2019-07-24 10:08:00 2019-07-24 10:08:00 Outpatient [facility] [address] [facility] Results Test Description Test Time Test Comments Results Result Comments Source CHEST SINGLE (PORTABLE) 2020-04-13 16:05:[address] [address] Patient Name: JANE ATKINS MR #: [id number] : 1980 Age/Sex: 39/F Req #: [id number] Adm Physician: Ordered by: MADELINE GLEZ MD Report #: [id number] Location: ER Room/Bed: Procedure: [id number] DX/CHEST SINGLE (PORTABLE) Exam Date: 04/13/20 Exam Time: 1543 REPORT STATUS: Signed EXAMINATION: CHEST SINGLE (PORTABLE) INDICATION: Chest pain COMPARISON: None FINDINGS: LINES/TUBES:Right chest port terminates in the superior vena cava. LUNGS:The lungs are well-inflated. No focal consolidation or pulmonary edema. PLEURA:No pleural effusion or pneumothorax. MEDIASTINUM:The cardiomediastinal silhouette appears normal in size and shape. BONES/SOFT TISSUES:No acute osseous injury. ABDOMEN:No free air under the diaphragm. IMPRESSION: No focal pneumonia or pulmonary edema. Signed by: Donna Peterson MD on 04/13/2020 4:06 PM Dictated By: DONNA PETERSON MD 160 Transcribed By: BENJAMÍN on 04/13/20 1606 COPY TO: MADELINE GLEZ MD - CT GUID NDL [facility] 2019-10-21 14:03:00 Name: JANE ATKINS [facility] : 1980 Age/S: 39 / F [address] [facility] Unit #: [id number] Loc: [place] [address] Phys: Andre Chilel MD Acct: [id number] Dis Date: Status: [facility] PHONE #: [phone] Exam Date: 10/16/2019 1240 FAX #: [phone] Reason: BIOPSY EXAMS: CPT CODE: [id number] CT GUID NDL [facility] [address] EXAM: CT-guided biopsy of a retroperitoneal lymph [...] of enlarged celiac lymph nodes. Location code: [facility] at 1403 Reported and signed by: Andre Chilel M.D. CC: Tre Viveros DO; Andre Chilel MD Technologist:Jose Armando Diehl RT(R),(MR),(CT) CTDI: DLP: Trnscb Date/Time: 10/21/2019 (1813) Rj Orig Print D/T: S: 10/21/2019 (7769) PAGE 1 Signed Report LYMPH NODE,BIOPSY 2019-10-20 15:39:00 RUN DATE: 10/20/19 [facility] PAGE 1 RUN TIME: 1540 Specimen Inquiry RUN USER: INTERFACE PATIENT: JANE ATKINS LOC: [facility] U #: [id number] AGE/SX: 39/F ROOM: RE10/16/19REG DR: Andre Chilel MD : [birth year] BED: DIS: STATUS: VIGNESH LARSEN TLOC: SPEC #: [id number] RECD: 10/16/19 STATUS: OMER ARNOLD #: [id number] ROLANDO: 10/16/19- SUBM DR: Andre Chilel MD ENTERED: 10/16/19 SP TYPE: BX LYMPH OTHR DR: Tre Viveros DO TUMOR REGISTRYORDERED: GROSS COPIES TO: Tre Viveros DO [address] [place] [address] TUMOR REGISTRY Andre Chilel MD [address] [place] [address] MARKERS: MALIGNANCY PROCEDURES: GROSS (10/19/19-1051) TISSUES: 1. LYMPH NODE, NOS - RINSE, 5 SLIDES, FLOW 2. LYMPH NODE, NOS - BX CLINICAL HISTORY COLLECTION DATE: 10/16/19 ENLARGED CELIAC LYMPH NODES COMMENT The core biopsy was sent to [facility] for immunostains. T he immunostains were interpreted at [facility]. The controls stain appropriately. The tumor is positive for CK-7 and focally positive for CK-20. It is negative for CA-19-9. Consider GI (not typical staining pattern for colonic primary) or Tractor Trailer Truck Driver primary. Clinical correlation recommended. Intradepartmental consultation: RRB. CONTINUED ON NEXT PAGE RUN DATE: 10/20/19 [place] [facility] PAGE 2 RUN TIME: 1540 Specimen Inquiry RUN USER: INTERFACE SPEC #: [id number] PATIENT: ATKINSJANE BROWN #[id number] (Continued) FINAL DIAGNOSIS Celiac lymph node, fine needle aspirate biopsy: FRAGMENTS OF FIBROUS TISSUE AND PERIPHERAL BLOOD ELEMENTS NEGATIVE FOR MALIGNANCY Celiac lymph node, core biopsy and touch preps: ADENOCARCINOMA WITH ASSOCIATED FIBROTIC TISSUE (SEE COMMENT) DMW/amena D 147728, 46176, 64365, 70201, 296729 MACROSCOPIC Specimen (1) is designated "celiac lymph [...] stained for cytologic evaluation. GROSS PERFORMED AT [facility] [address] [place], [place] [address] (P)[phone] MICROSCOPIC The sections of the core biopsy [...] controls performed, stain appropriately. MICROSCOPIC PERFORMED AT [facility] [address] [place] [address] ([phone] CONTINUED ON NEXT PAGE RUN DATE: 10/20/19 [place] [facility] PAGE 3 RUN TIME: 1540 Specimen Inquiry RUN USER: INTERFACE SPEC #: [id number] PATIENT: JANE ATKINS #[id number] (Continued) PERFORMING SITE Diagnosis performed at: [facility] [address] [place] [address] Signed SIGNATURE ON FILE Giselle Eagle MD [...] CA) 8.6 mg/dL 8.5-10.1 N BASIC METABOLIC [id number] 15:56:00* Test Item Value Reference Range Interpretation [...] code = CA) mg/dL 8.5-10.1 CBC W/AUTO [id number] 15:46:00* Test Item Value Reference Range Interpretation [...] code = BA#) K/mm3 0.0-0.2 CBC W/AUTO [id number] 15:46:00* Test Item Value Reference Range Interpretation [...] REQUIRED (test code = MDIFF) NO PROTHROMBIN [id number] 15:06:00* Test Item Value Reference Range Interpretation [...] Mechanical prosthetic heart valves (2.5-3.5) THROMBOPLASTIN TIME [id number] 15:06:00* Test Item Value Reference Range Interpretation Comments THROMBOPLASTIN TIME PARTIAL (test code = PTT) 30.7 seconds 25.0-36. 5 N Creatinine [id number] 08:20:06* Test Item Value Reference Range Interpretation Comments Creatinine (test code = 2160-0) 0.50 mg/dL 0.5-0.9 [facility] MethodistEstimated [id number] 08:20:06* Test Item Value Reference Range Interpretation Comments Estimated GFR (test code = 5488) >=90 mL/min/1.73 m2 Catergory Units InterpretationG1 >=90 Normal or highG2 60-89 Mildly slkimhsewN6y 45-59 Mildly to moderately rekagcfhaY1m 30-44 Moderately to severely decreasedG4 15-29 Severely decreasedG5 <15 Kidney failureThe eGFR was calculated using the Chronic Kidney Disease Epidemiology Collaboration (CKD-EPI) equation. Interpretation is based on recommendations of the National Kidney Foundation-Kidney Disease Outcomes Quality Initiative (NKF-KDOQI) published in 2014. [facility] MethodistCT Abdomen Pelvis W [id number] 19:28:59Hm Interface, Radiology Results 09/28/2019 7:32 PM CSTEXAMINATION: CT ABDOMEN PELVIS [...] CT could also be performed.2.Additional findings as above.[id number] [facility] Chest Wo [id number] 08:24:54Hm Interface, Radiology Results 09/12/2019 8:27 AM [...] suggested if this has not been previously performed.[facility]-[id number] MethodistS MAMM BILATERAL KODY CAD [id number] 15:59:29 - SCR MAMM BILATERAL KODY CAD DIGITALBILATERAL FIRST EVER DIGITAL SCREENING MAMMOGRAM 3D/2D WITH CAD: 07/21/2019CLINICAL: Asymptomatic. Digital breast tomosynthesis was performed in addition to routine CC and MLO views. Technically limited due to patient factors.Current mammographic images were evaluated by either a Gen110 M-Vu or a Shared Spectrum ImageChecker CAD (computer aided detection system). No prior [...] [facility] [place]/:07/21/2019 15:59:29 [place]: Britt EVERETT, [facility] sent: BIRADS 1-2 Normal Mammogram BI-RADS: 2 Benign- CT MAXIFAC W W/O [id number] 22:22:00 Name: JANE ATKINS [facility] : 1980 Age/S: 38 / F [address] [facility] Unit #: [id number] Loc: [place], [place] [address] Phys: Patrick León MD Acct: [id number] Di s Date: Status: REG ER PHONE #: [phone] Exam Date: 07/17/20192149 FAX #: Reason: FACIAL SWELLING EXAMS: CPT CODE: [id number] CT MAXIFAC W W/O CONT 20612 HISTORY: Facial swelling. COMPARISON: None available. CT [...] 1 Signed Report (CONTINUED) Name: JANE ATKINS [facility] : 1980 Age/S : 38 / F [address] [facility] Unit #: [id number] Loc: [place] [address] Phys: Helena León MD Acct: [id number] Dis Date: Status: REG ER PHONE #: [phone] Exam Date: 07/17/20192149 FAX #: [phone] Reason: F ACIAL SWELLING EXAMS: CPT CODE: [id number] CT MAXIFAC W W/O CONT 28699 <Continued> CC: Tre Viveros DO Technologist:ABDELRAHMAN BACON RT(R),RDMS,CT CTDI: DLP: Trnscb Date/Time: 07/17/2019 (2221) [email or web address] Orig Print D/T: S: 07/17/2019 (7916) PAGE 2 Signed Report HCG SERUM [id number] 21:52:00* Test Item Value Reference Range Interpretation Comments HCG SERUM QUAL (test code = HCGQL) NEGATIVE NEGATIVE This HCGQL test is NOT applicable for MALE patients.Check with nurse about probable order error.If Tumor Marker Test needed, nurse should order test "HCGTU"(Test #550.09208) ADD ONLACTIC [id number] 21:07:00* Test Item Value Reference Range Interpretation Comments LACTIC ACID (test code = LACT) 1.9 MMOL/L 0.4-1.9 N BASIC METABOLIC [id number] 20:57:00* Test Item Value Reference Range Interpretation [...] CA) 8.1 mg/dL 8.4-10.2 L CBC W/AUTO [id number] 20:48:00* Test Item Value Reference Range Interpretation [...] code = MDIFF) NO - US RETRO [id number] 18:54:00 Name: JANE ATKINS [facility] : 1980 Age/S: 38 / F [address] [facility] Unit #: [id number] Loc: [place] [address] Phys: Tre Viveros DO Acct: [id number] Dis Date: Status: REG CLI PHONE #: [phone] Exam Date: 01/08/2019 1841 FAX #: [phone] Reason: UTI EXAMS: CPT CODE: [id number] US RETRO LTD [address] REASON FOR EXAM: UTI EXAM ORDER DATE: 01/08/2019 6:24 PM Attending Carloz: Tre Viveros DO PROCEDURE: - US RETRO [...] Maricel Garnett RDMS Trnscb Date/Time: 01/08/2019 (1853) [email or web address] Orig Print D/T: S: 01/08/2019 (1856) Probe: PAGE 1 Signed Report COMPREHENSIVE METABOLIC [id number] 02:41:00* Test Item Value Reference Range Interpretation [...] ALKP) 93 U/L 38-126 N COMPREHENSIVE METABOLIC [id number] 02:36:00* Test Item Value Reference Range Interpretation [...] (test code = ALKP) IUnit/L 45-117 MONO [id number] 02:27:00* Test Item Value Reference Range Interpretation Comments MONO SCREEN (test code = MONO) NEGATIVE NEGATIVE URINALYSIS [id number] 02:26:00* Test Item Value Reference Range Interpretation [...] MUCU) MANY per LPF NONE-FEW URINALYSIS W/O [id number] 02:26:00* Test Item Value Reference Range Interpretation Comments UA MICROSCOPIC NEEDED? (test code = UAMICRO) YES UR HCG [id number] 02:26:00* Test Item Value Reference Range Interpretation Comments UR HCG QUAL (test code = HCGQLU) NEGATIVE This HCGQL test is NOT applicable for MALE patients.Check with nurse about probable order error.If Tumor Marker Test needed, nurse should order test "HCGTU"(Test #550.23646) URINALYSIS [id number] 02:12:00* Test Item Value Reference Range Interpretation [...] = WBCU) per HPF 0-5 URINALYSIS W/O [id number] 02:12:00* Test Item Value Reference Range Interpretation Comments UA MICROSCOPIC NEEDED? (test code = UAMICRO) YES UR HCG [id number] 02:12:00* Test Item Value Reference Range Interpretation Comments UR HCG QUAL (test code = HCGQLU) URINALYSIS [id number] 02:12:00* Test Item Value Reference Range Interpretation [...] = WBCU) per HPF 0-5 URINALYSIS W/O [id number] 02:12:00* Test Item Value Reference Range Interpretation Comments UA MICROSCOPIC NEEDED? (test code = UAMICRO) YES UR HCG [id number] 02:12:00* Test Item Value Reference Range Interpretation Comments UR HCG QUAL (test code = HCGQLU) NEGATIVE This HCGQL test is NOT applicable for MALE patients.Check with nurse about probable order error.If Tumor Marker Test needed, nurse should order test "HCGTU"(Test #550.08694) URINALYSIS [id number] 02:12:00* Test Item Value Reference Range Interpretation [...] = WBCU) per HPF 0-5 URINALYSIS W/O [id number] 02:12:00* Test Item Value Reference Range Interpretation Comments UA MICROSCOPIC NEEDED? (test code = UAMICRO) YES UR HCG [id number] 02:12:00* Test Item Value Reference Range Interpretation Comments UR HCG QUAL (test code = HCGQLU) CBC W/AUTO [id number] 02:11:00* Test Item Value Reference Range Interpretation [...]
[2020-04-13] MEDS ORDERED: IOPAMIDOL 370 MG/ML 200 ML INFUS..BTL INJ ONE (20:12)
[2020-04-13] MEDS ORDERED: SODIUM CHLORIDE 0.9% 50ML 50 ML ONE (20:12)
--- NOTE | 2020-04-13 20:18 | Diagnostic Imaging Report ---
EXAM: CT Chest WITH contrast 04/13/2020 7:55 PM INDICATION: Chest pain and shortness of breath. Pulmonary embolism. COMPARISON: None TECHNIQUE: Chest was scanned utilizing a multidetector helical scanner from the lung apex through the level of the adrenal glands without administration of IV contrast. Coronal and sagittal reformations were obtained. Routine protocol was performed. IV CONTRAST: 100 mL of Isovue 370 RADIATION DOSE: Total DLP: 618.20 mGy*cm Estimated effective dose: (DLP x 0.014 x size factor) mSv COMPLICATIONS: None FINDINGS: Examination somewhat limited due to suboptimal opacification of the pulmonary arterial system, possibly due to timing. No large central pulmonary embolus is identified within the main, or right and left pulmonary arteries. Cannot evaluate lobar and segmental arteries. LINES/ TUBES: Right chest Port-A-Cath with distal tip in the cavoatrial junction. LUNGS AND AIRWAYS: The lungs are unremarkable. Airways are normal. PLEURA: The pleural spaces are clear. HEART AND MEDIASTINUM: The thyroid gland is normal. No mediastinal, hilar or axillary lymphadenopathy. The heart is normal in size.. There is no pericardial effusion. UPPER ABDOMEN: Limited non-contrast views of the upper abdomen show severe hepatic steatosis. Status post cholecystectomy.. The adrenal glands are normal. BONES: The visualized bony thorax is within normal limits. SOFT TISSUES: Spondylosis of the lower thoracic spine. IMPRESSION: 1. No large central pulmonary embolus. Limited evaluation for lobar and segmental pulmonary emboli. If clinical concern remains, consider repeat examination or alternative exam such as VQ scan. Signed by: Dr. She Pagan M.D. on 04/13/2020 8:15 PM
--- NOTE | 2020-04-13 21:39 | NUR ---
PER DR. GAMBOA, CHANGE ADMISSION TO IMCU, ORDNANCE TECHNICIAN GRANT KIRAN, RN NOTIFIED
[2020-04-13] MEDS: FAMOTIDINE 20 MG/2 ML VIAL IV SCH (22:14)
[2020-04-14] MEDS: SODIUM CHLORIDE 0.9% 1000ML 1,000 ML IV SCH ×2 (00:24→07:00)
[2020-04-14 00:38] VITALS: BP 134/77
[2020-04-14 01:00] VITALS: BP 134/77
--- NOTE | 2020-04-14 03:36 | NUR ---
AM blood labs and lactic acid drawn and sent to lab.
[2020-04-14 03:37] LABS: BASOPHILS % 0.7 % (0.0-1.0); EOSINOPHILS # (AUTO) 0.1 (0.0-0.4); HEMATOCRIT 37.7 % (34.2-44.1); HEMOGLOBIN 11.7 g/dL (12.0-16.0); LYMPHOCYTES # (AUTO) 2.7 (1.0-3.2); LYMPHOCYTES % 45.9 % (18.0-39.1); MEAN CORPUSCULAR HEMOGLOBIN 29.9 pg (28-32); MEAN CORPUSCULAR VOLUME 96.4 fL (81-99); MONOCYTES # (AUTO) 0.3 (0.2-0.8); MONOCYTES % 4.7 % (4.4-11.3); NEUTROPHILS # (AUTO) 2.7 (2.1-6.9); NEUTROPHILS % 45.8 % (38.7-80.0); PLATELET COUNT 309 x10e3/uL (140-360); RED BLOOD COUNT 3.91 x10e6/uL (3.6-5.1); RED CELL DISTRIBUTION WIDTH 14.8 % (11.7-14.4)
[2020-04-14 03:59] LABS: BLOOD UREA NITROGEN 14 mg/dL (7-26); BUN/CREATININE RATIO 15 (6-25); CALCIUM 8.5 mg/dL (8.4-10.2); CARBON DIOXIDE 23 mmol/L (22-29); CHLORIDE 106 mmol/L (98-107); CHOL/HDL RATIO 2.5 (3.0-3.6); CHOLESTEROL 149 MD/DL (0-199); CREATININE, SERUM 0.95 mg/dL (0.57-1.11); EST GLOMERULAR FILTRATION RATE > 60 ML/MIN (60-); GLUCOSE 257 mg/dL (74-118); HDL CHOLESTEROL 60 MG/DL (40-60); LDL CHOLESTEROL 21 MG/DL (60-130); SODIUM 139 mmol/L (136-145); TRIGLYCERIDES 340 MG/DL (0-149)
[2020-04-14 04:00] VITALS: BP 131/81
[2020-04-14 04:13] LABS: CREATINE KINASE MB 1.1 ng/mL (0-5.0)
[2020-04-14 07:45] VITALS: BP 167/98
[2020-04-14] MEDS: FAMOTIDINE 20 MG/2 ML VIAL IV SCH (08:09)
[2020-04-14 08:26] VITALS: BP 167/98
[2020-04-14] MEDS ORDERED: ACETAMINOPHEN 325 MG TAB PO PRN (08:30)
[2020-04-14] MEDS ORDERED: ASPIRIN 81 MG ENTERIC COATED PO SCH (09:00)
[2020-04-14] MEDS ORDERED: METOPROLOL SUCC50 MG PO (10:34)
[2020-04-14] MEDS ORDERED: HYDROXYCHLOROQ200 MG PO (10:35)
[2020-04-14] MEDS ORDERED: METFORMIN HCL500 MG PO (10:35)
[2020-04-14] MEDS ORDERED: NORCO 10-325 T1 EACH PO (10:36)
[2020-04-14] MEDS ORDERED: ASPIRIN CHEW81 MG PO (10:40)
[2020-04-14] MEDS ORDERED: FAMOTIDINE20 MG PO (10:40)
[2020-04-14] MEDS ORDERED: TRICOR48 MG PO (10:41)
[2020-04-14 12:30] VITALS: BP 131/88
[2020-04-15] MEDS ORDERED: FENOFIBRATE 48 MG TAB PO SCH (09:00)
[2020-04-15] MEDS ORDERED: METOPROLOL SUCCINATE 50 MG TAB XL PO SCH (09:00)
[2020-04-15] MEDS ORDERED: AMLODIPINE BESYLATE 10 MG TAB PO SCH (09:00)
--- NOTE | 2020-04-18 11:28 | Discharge Summary ---
ADMISSION DIAGNOSES: Chest pain, elevated D-dimer, hyperlipidemia, super morbid obesity with a BMI of 50.3, type 2 diabetes. DISCHARGE DIAGNOSES: Pain, rule out PE, rule out ACS. HISTORY: Stage IV adenocarcinoma of the stomach, RA, OA, and type 2 diabetes. SURGICAL HISTORY: T and A, right wrist ganglion cyst removal, cholecystectomy. FAMILY HISTORY: The patient's dad, cousin, grandma, grandpa, uncles and aunts had diabetes. The patient's cousin had cancer. SOCIAL HISTORY: The patient admits to occasional alcohol use. She quit tobacco use in 2011. HOSPITAL COURSE: A 39-year-old female admits with complaints of substernal chest pain that began yesterday while laying down. She denies shortness of breath, nausea, vomiting, dizziness, and diaphoresis. The pain was constant and sharp, but has now resolved. On admission, troponins were negative x3. Chest x-ray was negative for pneumonia and edema. CT of the chest was negative for PE. Echo showed an EF of about 55%. UA was negative. The patient is afebrile. TSH was within normal limits. An A1c was 8.5. She was told to follow up with primary care in 1 to 2 weeks and was given a prescription for aspirin, TriCor on Pepcid. The patient understands instructions and agrees to plan. Vital signs are stable. The patient is afebrile. Dictated by Atiya Ahn NP MD ASHLIE Rausch/PEPITO /[id number]
== END 2020-04-14 15:10 | disposition home or self-care (01) ==
LOC: ER 15:01 → ERHOLD 19:28 → IMCU 23:53
PROVIDERS: ADMIT Internal Medicine; ATTEND Internal Medicine
DX: R07.89 Other chest pain (principal); E11.9 Type 2 diabetes mellitus without complications; M19.90 Unspecified osteoarthritis, unspecified site; Z85.028 Personal history of other malignant neoplasm of stomach; Z87.891 Personal history of nicotine dependence; E66.01 Morbid (severe) obesity due to excess calories; Z68.43 Body mass index [BMI] 50.0-59.9, adult; E78.5 Hyperlipidemia, unspecified
CPT/HCPCS: 36415 ×2; 71045; 71260; 80048; 80053; 80061; 81001; 82550 ×2; 82553 ×2; 83036; 83605 ×2; 83735; 83880; 84443; 84484 ×2; 84702; 85025 ×2; 85379; 85610; 85730; 87040; 87086; 87635; 93005; 93306; 99284; G0378 ×2; J1650; J2405; J7030 ×2; Q9967